=== PATIENT | male | born 1950 | race Caucasian/White ===

== ENCOUNTER 2019-11-01 00:07 | Outpatient (CLI) | payer MEDICARE, SELFPAY ==
[2019-11-01 18:56] LABS: SARS-CoV-2 RNA PCR Negative
== END 2019-11-01 00:08 | disposition home or self-care (01) ==
LOC: ANHCOVIDDT 00:07
PROVIDERS: PCP Internal Medicine; Visit Provider Internal Medicine Gastroenterology
DX: Z01.818 Encounter for other preprocedural examination (principal); Z11.59 Encounter for screening for other viral diseases; Z12.11 Encounter for screening for malignant neoplasm of colon
CPT/HCPCS: 87635; C9803; U0003

== ENCOUNTER 2019-11-03 00:34 | Day surgery (SDC) | payer MEDICARE, SELFPAY ==
[2019-09-28 09:46] VITALS: BMI 27.5
[2019-10-27 14:53] VITALS: BMI 27.5
[2019-11-03] MEDS: LACTATED RINGERS 1,000 ML 150 ML IV CONT (07:12)
[2019-11-03 07:19] VITALS: BP 128/70; PULSE 64; RESP 18; TEMP 36.9; O2SAT 98
--- NOTE | 2019-11-03 07:34 | WPDANESEPPF ---
Anes - Initial Pre Proc Eval Procedure: Operation Date: 11/03/19 08:30 Proposed Procedures p Screening Colonoscopy - Joseluis Holcomb DO Date/Time: 11/03/19 07:34 Surgeon: Joseluis Holcomb DO Pre Op Diagnosis: Diverticulitis Patient Data Age: 68 Gender: M Height: 1.83 m Weight: 84.4 kg Last Vital Signs Temp 36.9 C 11/03/19 07:19 Pulse 64 11/03/19 07:19 Resp 18 11/03/19 07:19 BP 128/70 11/03/19 07:19 Pulse Ox 98 11/03/19 07:19 Allergies Allergy/AdvReac Type Severity Reaction Status Date / Time No Known Allergies Allergy Verified 11/03/19 07:21 Home Medications Medication Instructions Recorded Confirmed Type atenolol 50 mg PO DAILY 09/28/19 10/27/19 History atorvastatin 10 mg PO DAILY 09/28/19 10/27/19 History lisinopril 10 mg PO DAILY 09/28/19 10/27/19 History rivaroxaban [Xarelto] 20 mg PO HS 09/28/19 11/03/19 History Patient hx anesthesia problems: none Family hx anesthesia problems: none PMFSH Past Medical History Medical History (Updated 11/03/19 @ 07:36 by Mahesh Cochran MD) Atrial fibrillation Diverticulitis Head injury head injury at age 21 with left eye enucletion Hx of myocardial infarction 2006 Surgical History Surgical History (Updated 11/03/19 @ 07:35 by Mahesh Cochran MD) Hx of cardiac catheterization x1 stent 2006 Family History Family History (Updated 01/05/14 @ 07:13 by DOCTOR UNKNOWN) Father Malignant neoplasm of prostate Mother Cerebrovascular accident Social History Social History Smoking end date: 05/11/98 Alcohol intake: current Anes - Eval Final PreProcedure Day of Procedure 11/03/19 07:34 Patient weight: overweight Heart: regular rate and rhythm Lungs: clear to auscultation and normal air movement Airway: Mallampati scale class II Neurological: alert and oriented Last oral intake: >/= 8 hours ASA classification: III Emergent: no Anesthetic plan: proceed Anesthesia type and monitoring: general GIVS Informed Consent: The patient's anesthetic plan and its attendant risks and benefits were discussed with the patient/family/POA. Questions were solicited and answers provided to the satisfaction of the patient/family/POA.
--- NOTE | 2019-11-03 08:04 | PM.IMHP ---
H&P: HPI History of Present Illness Chief complaint: Diverticulitis Narrative: Reason for visit colonoscopy. Very pleasant gentleman's here at the request of the primary physician. The patient was examined. Impression: Your ever pleasant gentleman with a history adenomatous colon polyps and diverticulitis. He is here for colonoscopy for screening and surveillance. Per past medical history. Recommendation: Colonoscopy. History: Very pleasant gentleman is a history of adenomatous colon polyps and diverticulitis. Recently he self treated for diverticulitis with antibiotics. he denies any hematochezia, melena or acholic stools. Constipation and diarrhea deny. Upper gastrointestinal symptoms are denied. Physical examination: General: very pleasant patient in no acute distress. HEENT: Head was normocephalic sclerae is clear mouth without masses neck was supple. Heart: Irregularly irregular Lungs: CTA. Abdomen: Soft with no guarding or rigidity. Bowel sounds were active. Neurologic: Cranial nerves 2 through 12 intact. No focal defects. No clonus. Musculoskeletal system: Revealed no joint tenderness or swelling no muscle atrophy. Extremities: Reveal no significant edema. Skin: Warm and dry with normal turgor. Mental status: intact. Patient is alert and oriented. Review of Systems Review of Systems: All systems reviewed & are unremarkable except as noted in HPI and below PMFSH Past Medical History Medical History Adenomatous colon polyp Atrial fibrillation CAD (coronary artery disease) Diverticulitis Head injury head injury at age 21 with left eye enucletion HLD (hyperlipidemia) HTN (hypertension) Hx of myocardial infarction 2006 Surgical History Surgical History H/O colonoscopy History of ankle surgery Hx of cardiac catheterization x1 stent 2006 Family History Family History Father Malignant neoplasm of prostate Mother Cerebrovascular accident Social History Social History Smoking end date: 05/11/98 Alcohol intake: current Meds Home Medications and Allergies Home Medications Medication Instructions Recorded Confirmed Type atenolol 50 mg PO DAILY 09/28/19 10/27/19 History atorvastatin 10 mg PO DAILY 09/28/19 10/27/19 History lisinopril 10 mg PO DAILY 09/28/19 10/27/19 History rivaroxaban [Xarelto] 20 mg PO HS 09/28/19 11/03/19 History Allergies Allergy/AdvReac Type Severity Reaction Status Date / Time No Known Allergies Allergy Verified 11/03/19 07:21 Vital Signs Vital Signs - 24 hr 11/03/19 07:19 Temperature 36.9 C Pulse Rate 64 Respiratory Rate 18 Blood Pressure 128/70 Pulse Oximetry 98
[2019-11-03 08:35] VITALS: BP 88/55; PULSE 69; RESP 17; O2SAT 97
[2019-11-03 08:45] VITALS: BP 106/82; PULSE 72; RESP 17; O2SAT 98
[2019-11-03 08:55] VITALS: BP 100/60; PULSE 67; RESP 16; O2SAT 96
== END 2019-11-03 08:57 | disposition home or self-care (01) ==
PROVIDERS: Visit Provider Internal Medicine Gastroenterology
PROC: 0DJD8ZZ Inspection of Lower Intestinal Tract, Via Natural or Artificial Opening Endoscopic (ICD-10-PCS; CPT 45378; principal; 2019-11-03 08:30)
DX: Z12.11 Encounter for screening for malignant neoplasm of colon (principal); D12.2 Benign neoplasm of ascending colon; D12.3 Benign neoplasm of transverse colon; K57.30 Diverticulosis of large intestine without perforation or abscess without bleeding; K64.8 Other hemorrhoids; I10 Essential (primary) hypertension; I48.91 Unspecified atrial fibrillation; I25.10 Atherosclerotic heart disease of native coronary artery without angina pectoris; E78.5 Hyperlipidemia, unspecified; I25.2 Old myocardial infarction
CPT/HCPCS: 45385; 45380; 87635; 88305; C9803; J2001; J2704; J7120; U0003

== ENCOUNTER 2020-06-15 10:18 | Outpatient (CLI) | payer MEDICARE, SELFPAY ==
[2020-06-15 13:16] LABS: Alanine Aminotransferase 30 U/L (4-50); Albumin Level 4.3 g/dL (3.5-5.1); Alkaline Phosphatase 135 U/L (38-126); Anion Gap 9 mmol/L (8-16); Aspartate Amino Transferase 35 U/L (17-59); Bilirubin,Total 2.3 mg/dL (0.2-1.3); Blood Urea Nitrogen 13 mg/dL (9-20); Calcium 9.3 mg/dL (8.4-10.2); Carbon Dioxide 24 mmol/L (22-30); Chloride 107 mmol/L (98-107); Cholesterol 130 mg/dL (0-200); Estimated Glomerular Filt Rate > 60; Glucose 103 mg/dL (75-110); HDL Direct 56 mg/dL; Potassium 4.3 mmol/L (3.4-5.0); Sodium 140 mmol/L (137-145); Triglycerides 65 mg/dL (<150)
[2020-06-15 13:27] LABS: LDL Cholesterol Direct 55 mg/dL
[2020-06-15 13:47] LABS: Prostate Specific Antigen 1.3 ng/mL (< OR = 4.0)
== END 2020-06-15 10:19 | disposition home or self-care (01) ==
PROVIDERS: PCP Nurse Practitioner; Visit Provider Nurse Practitioner
DX: E78.5 Hyperlipidemia, unspecified (principal); Z12.5 Encounter for screening for malignant neoplasm of prostate
CPT/HCPCS: 36415; 80053; 80061; 84153; G0103

== ENCOUNTER 2021-07-12 13:42 | Outpatient (CLI) | payer MEDICARE, SELFPAY ==
[2021-07-12 16:36] LABS: Alanine Aminotransferase 33 U/L (4-50); Albumin Level 4.2 g/dL (3.5-5.1); Alkaline Phosphatase 97 U/L (38-126); Anion Gap 8 mmol/L (8-16); Aspartate Amino Transferase 34 U/L (17-59); Bilirubin,Total 1.1 mg/dL (0.2-1.3); Blood Urea Nitrogen 12 mg/dL (9-20); Calcium 8.9 mg/dL (8.4-10.2); Carbon Dioxide 27 mmol/L (22-30); Chloride 105 mmol/L (98-107); Cholesterol 130 mg/dL (0-200); Estimated Glomerular Filt Rate > 60; Glucose 77 mg/dL (65-110); HDL Direct 57 mg/dL; Potassium 3.7 mmol/L (3.4-5.0); Sodium 140 mmol/L (137-145); Triglycerides 72 mg/dL (<150)
[2021-07-12 16:49] LABS: LDL Cholesterol Direct 58 mg/dL
[2021-07-12 17:07] LABS: Prostate Specific Antigen 1.3 ng/mL (< OR = 4.0)
[2021-07-16 09:48] LABS: Testosterone Total 355 ng/dL (250-1100)
== END 2021-07-12 13:43 | disposition home or self-care (01) ==
PROVIDERS: PCP Nurse Practitioner; Visit Provider Nurse Practitioner
DX: Z12.5 Encounter for screening for malignant neoplasm of prostate (principal); E78.5 Hyperlipidemia, unspecified; R53.83 Other fatigue
CPT/HCPCS: 36415; 80053; 80061; 84153; 84403; G0103

== ENCOUNTER 2022-10-07 11:03 | Emergency (ER) | payer MEDICARE, SELFPAY ==
--- NOTE | ~2022-10-07 | XR_ITS ---
EXAMINATION: XR lumbar spine 2-3V DATE: 10/07/2022 11:45 INDICATION: Back pain. TECHNIQUE: 3 views of lumbar spine were obtained. COMPARISON: CT abdomen and pelvis 11/10/2016 FINDINGS: There is 12 degrees levoscoliosis of lumbar spine. There is 3 mm retrolisthesis of L4 on L5 . There is a compression fracture of L1 with 1/5 loss of height. There is a compression fracture of L 4 with 1/5 loss of height. There is mildly decreased disc height at L2-L3 and L3-L4 and severely decr eased disc height at L4-L5 and L5-S1. There is multilevel facet joint osteoarthritis, severe in lower lumbar spine. IMPRESSION: 1. Age-indeterminate compression fractures of L1 and L4, new from 11/10/2016. 2. Severe lumbar spondylosis. 3. Lumbar levoscoliosis. Reviewed, dictated and finalized at location L.
[2022-10-07 11:19] VITALS: BP 170/102; PULSE 78; RESP 18; TEMP 36.6; O2SAT 100
[2022-10-07] MEDS: CYCLOBENZAPRINE HCL 10 MG TABLET PO (12:52)
[2022-10-07] MEDS: HYDROcodone/acetaminophen (*CRX) 5-325 MG TABLET 1 TAB PO (12:52)
--- NOTE | 2022-10-07 12:54 | ED.BACK ---
HPI - Back Pain/Injury General Chief Complaint: Back Pain/Injury Stated Complaint: LOW BACK PAIN S/P FALL 5 DAYS AGO Time Seen by Provider: 10/07/22 11:55 History of Present Illness HPI Narrative: 71-year-old male presenting to the ED for evaluation of right lower back pain. Patient reports that he did have a fall on Thursday while he was on his porch and trying to move a box. Patient reports he did have a mechanical fall from losing traction and falling backwards. Patient states he did land on the grass on his lower back. Patient describes right lower back pain. Patient denies striking his head denies loss of consciousness. Patient denies any associated numbness or weakness. Patient denies any change in bowel or bladder habits. Patient was being treated at home by his with ibuprofen, steroids and Valium. Patient presents to the ED for evaluation. Related Data Home Medications Medication Instructions Recorded Confirmed atenolol 50 mg tablet 50 mg PO DAILY 09/28/19 06/28/21 lisinopril 10 mg tablet 10 mg PO DAILY 09/28/19 06/28/21 rivaroxaban 20 mg tablet (Xarelto) 20 mg PO HS 09/28/19 06/28/21 atorvastatin 40 mg tablet 40 mg PO DAILY 06/12/20 06/28/21 Allergies Allergy/AdvReac Type Severity Reaction Status Date / Time No Known Allergies Allergy Verified 10/07/22 11:23 Review of Systems Review of Systems: All systems reviewed & are unremarkable except as noted in HPI and below PMFSH Past Medical History Medical History Adenomatous colon polyp Atrial fibrillation CAD (coronary artery disease) Diverticulitis Head injury head injury at age 21 with left eye enucletion HLD (hyperlipidemia) HTN (hypertension) Hx of myocardial infarction 2006 Surgical History Surgical History H/O colonoscopy History of ankle surgery Hx of cardiac catheterization x1 stent 2006 Family History Family History Father Malignant neoplasm of prostate Heart disease Cerebrovascular accident Mother Cerebrovascular accident Cancer Social History Social History Smoking end date: 05/11/98 Alcohol intake: current Alcohol use details: social Substance use: never Agree to blood products: Yes Exam Narrative: APPEARANCE: Well appearing, no pain, no distress, well-nourished. HEAD: normocephalic, atraumatic. EYES: PERRLA/EOMI, conjunctivae clear. NOSE: Normal no drainage NECK: Supple. No adenopathy, no masses. No midline neck tenderness to palpation RESPIRATORY: Airway patent, respirations nonlabored. Clear to auscultation bilaterally, no rales, rhonchi, wheezing. CARDIOVASCULAR: Regular rate and rhythm without murmurs rubs or gallops. ABDOMINAL: Soft, nontender, nondistended, normal bowel sounds MUSCULOSKELETAL: Moves all extremities. Strength/ROM intact, No edema, No calf tenderness. No midline tenderness to palpation of the entire neck or spine. No tenderness step-offs or deformity. Patient did have some reproducible tenderness on the right paraspinal muscles. NEURO: Alert. Cranial nerves II through XII intact. Normal reflexes and strength SKIN: Warm, dry. Normal Color Course Course Emergency Course: 71-year-old male presented to ED for evaluation of lower back pain. Patient's pain is noted on the midline. Patient's x-ray does show age-indeterminate compression fractures of L1 and L4 these are new since 2017. These do not correlate with the patient's pain. Patient and family were updated on the x-rays and plan for treatment. All questions and concerns were addressed. They will be provided outpatient follow-up with neurosurgery due to the age-indeterminate compression fractures. Vital Signs Vital signs: Vital Signs Temperature 97.8 F 10/07/22 11:19 Pulse Rate 78
== END 2022-10-07 13:15 | disposition home or self-care (01) ==
PROVIDERS: Emergency Provider Emergency Medicine; PCP Nurse Practitioner
DX: S39.92XA Unspecified injury of lower back, initial encounter (principal); I48.91 Unspecified atrial fibrillation; I25.10 Atherosclerotic heart disease of native coronary artery without angina pectoris; E78.5 Hyperlipidemia, unspecified; I10 Essential (primary) hypertension; I25.2 Old myocardial infarction; Z86.010 Personal history of colon polyps; Z87.891 Personal history of nicotine dependence; Z79.01 Long term (current) use of anticoagulants; M47.816 Spondylosis without myelopathy or radiculopathy, lumbar region; M48.56XA Collapsed vertebra, not elsewhere classified, lumbar region, initial encounter for fracture; W18.39XA Other fall on same level, initial encounter
CPT/HCPCS: 72100; 99283; A9270

== ENCOUNTER 2022-12-29 14:21 | Outpatient (CLI) | payer MEDICARE, SELFPAY ==
[2022-12-29 16:31] LABS: Hematocrit 43.9 % (42.0-52.0); Hemoglobin 14.4 g/dL (14.0-18.0); Mean Corpuscular HGB Conc 32.8 g/dl (32-36); Mean Corpuscular Volume 100.5 fl (80-100); Mean Platelet Volume 11.1 fl (7.4-10.4); Platelet Count Result 238 k/mm3 (150-375); Red Blood Count 4.37 M/mm3 (4.6-6.20); Red Cell Distribution Width 14.1 % (11.5-14.5); White Blood Count 8.6 K/mm3 (4.5-10.0)
[2022-12-29 16:50] LABS: Alanine Aminotransferase 28 U/L (6-50); Albumin Level 4.3 g/dL (3.5-5.1); Alkaline Phosphatase 112 U/L (38-126); Anion Gap 9 mmol/L (8-16); Aspartate Amino Transferase 33 U/L (17-59); Bilirubin,Total 1.8 mg/dL (0.2-1.3); Blood Urea Nitrogen 11 mg/dL (9-20); Carbon Dioxide 24 mmol/L (22-30); Chloride 103 mmol/L (98-107); Cholesterol 139 mg/dL (0-200); Estimated Glomerular Filt Rate > 60; Glucose 83 mg/dL (65-110); HDL Direct 66 mg/dL; Potassium 3.8 mmol/L (3.4-5.0); Sodium 136 mmol/L (137-145); Triglycerides 58 mg/dL (<150)
[2022-12-29 17:01] LABS: LDL Cholesterol Direct 60 mg/dL
[2022-12-29 17:21] LABS: Prostate Specific Antigen 1.8 ng/mL (< OR = 4.0)
== END 2022-12-29 14:22 | disposition home or self-care (01) ==
LOC: ANHLAB 14:23
PROVIDERS: PCP Nurse Practitioner; Visit Provider Nurse Practitioner
DX: E78.5 Hyperlipidemia, unspecified (principal); Z12.5 Encounter for screening for malignant neoplasm of prostate; Z79.899 Other long term (current) drug therapy
CPT/HCPCS: 36415; 80053; 80061; 84153; 85027; G0103

== ENCOUNTER 2023-09-21 11:27 | Outpatient (CLI) | payer MEDICARE, SELFPAY ==
--- NOTE | ~2023-09-21 | XR_ITS ---
Clinical Indication: Cough PA and lateral views of the chest: Comparison: 05/22/2009 Findings: The lungs are clear, without evidence of focal consolidation or pleural effusion. Cardiome diastinal silhouette is within normal limits. Bones and soft tissues are unremarkable. Impression: Normal chest. Reviewed, dictated and finalized at location . Impression: Normal chest.
[2023-09-21 12:14] LABS: Anion Gap 6 mmol/L (4-12); Blood Urea Nitrogen 13 mg/dL (9-20); Calcium 9.5 mg/dL (8.4-10.2); Carbon Dioxide 29 mmol/L (22-30); Chloride 103 mmol/L (98-107); Estimated Glomerular Filt Rate > 60; Glucose 101 mg/dL (65-110); Potassium 4.4 mmol/L (3.4-5.0); Sodium 138 mmol/L (137-145)
== END 2023-09-21 11:28 | disposition home or self-care (01) ==
LOC: ANHLAB 11:30
PROVIDERS: PCP Nurse Practitioner; Visit Provider Nurse Practitioner Adult Health
DX: R05.3 Chronic cough (principal); I51.89 Other ill-defined heart diseases
CPT/HCPCS: 36415; 71046; 80048

== ENCOUNTER 2024-11-18 10:02 | Outpatient (CLI) | payer MEDICARE, SELFPAY ==
--- OUTSIDE RECORDS SUMMARY | 2024-11-18 10:07 | XMS_ITS | Encounter Summary ---
Author Organization [facility] Address [address] [facility] [facility] [facility] [place] [address] Care Team Providers Care Feather Sawyer Name Role Phone Mike Alex MD Primary Care Provider Yelena Nguyen MD Unavailable Emani Robledo Unavailable Yessy Shah MD Unavailable Encounter Details Date Type Department Care Team (Late st Contact Info) Description 07/16/2023 Lab Requisition [facility] - DermPath Lab [address] [facility] [facility] [place] [address] Nan Solis MD [address] [facility] [address] [place] [address] Social History Tobacco Use Types Packs/Day Years Used Date Smoking Tobacco: Former Smokeless Tobacco: Former Quit: 05/11/1998 Comments:until 1998 Alcohol Use Standard Drinks/Week Comments Yes 0 (1 standard drink = 0.6 oz pur e alcohol) occasional Sex and Gender Information Value Date Recorded Sex Assigned at Not on file Legal Sex Male 5:33 PM SHEET ROCK TAPER HELPER Gender Identity Not on file Sexual Orientation Not on file documented as of this encounter Plan of Treatment Not on file documented as of this encounter Procedures Procedure Name Priority Date/Time Associated Diagnosis Comments DERMATOPATHOLOGY Routine 07/16/2023 1:18 PM SHEET ROCK TAPER HELPER documented in this encounter Results * DERMATOPATHOLOGY (07/16/2023 1:18 PM SHEET ROCK TAPER HELPER) Case Report Dermatopathology Report Case: [id number] Authorizing Provider: Nan Solis MD Collected: 07/16/2023 01:18 PM Ordering Location: [facility] - Received: 07/17/2023 01:12 PM DermPath Lab Pathologist: Ilana Donnelly MD Specimens: A) - Skin, left lower lip B) - Skin, right nose 1:19 PM CDT DERMATOPATHOLOGY LABORATORY Final Diagnosis Specimen A. SKIN, left lower lip: BASAL CELL CARCINOMA, NODULAR TYPE (C44.01) Specimen B. SKIN, right nose: BASAL CELL CARCINOMA, NODULAR TYPE (C44.311) (see microscopic description) 1:19 PM CDT DERMATOPATHOLOGY LABORATORY at 1319 CDT Clinical History A-B: r/o BCC 1:19 PM CDT DERMATOPATHOLOGY LABORATORY Gross Description Specimen A: Received is one formalin filled container labeled with the patient's name and designated left lower lip. The specimen consists of a shave biopsy measuring 10x5x2 mm. Jar 0. Specimen B: Received is one formalin filled container labeled with the patient's name and designated right nose. The specimen consists of a shave biopsy measuring 5x4x1 mm. Jar 0. 1:19 PM CDT DERMATOPATHOLOGY LABORATORY Microscopic Description Specimen A. SKIN, left lower lip: Within the dermis there are aggregates of basaloid cells with a high nuclear to cytoplasmic ratio and peripheral palisading. Specimen B. SKIN, right nose: Within the dermis there are aggregates of basaloid cells with a high nuclear to cytoplasmic ratio and peripheral palisading. Additional deeper sections were obtained and reviewed. 1:19 PM CDT DERMATOPATHOLOGY LABORATORY Disclaimer An external and internal positive and negative controls are appropriate for the histochemical, immunohistochemical and immunofluorescence stain(s) in this case (if any), except where stated explicitly. The performance characteristics of the stain(s) cited in this report were developed and its performance characteristic determined by the Dermatopathology Laboratory at [facility], directed by Dr. Angela Rae. These tests need not be, and therefore are not, approved by the [place] Food and Drug Administration. The tests are used for clinical purposes. Billing Codes Specimen Charges Stain Charges 88379 07475 1 1 4 1:19 PM CDT DERMATOPATHOLOGY LABORATORY Embedded Images 1:19 PM CDT DERMATOPATHOLOGY LABORATORY Pathology/Cytology TISSUE SPECIMEN FROM SKIN / Unknown 07/16/2023 1:18 PM SHEET ROCK TAPER HELPER 07/17/2023 1:12 PM SHEET ROCK TAPER HELPER Miscellaneous samples (specimen) TISSUE SPECIMEN FROM SKIN / Unknown 07/16/2023 1:18 PM SHEET ROCK TAPER HELPER 07/17/2023 1:12 PM SHEET ROCK TAPER HELPER us Nan Solis MD LAB - PATHOLOGY/CYTOLOGY ORD ERABLES Final Result DERMATOPATHOLOGY LABORATORY [facility] - Department of Dermatology [facility] [address] [facility] 3rd Floor [place], [place] [id number] [place] [address] documented in this encounter Visit Diagnoses Not on filedocumented in this encounter Care Teams Feather Sawyer Relationship Specialty Start Date End Date Mike Alex MD [address] [facility] [address] [facility] [address] [place] [address] PCP - General 11/19/20 [place] [address] [place] [address] [place] [id number] Ophthalmology 02/07/21 Emani Robledo [address] [place] [address] 02/11/21 Yessy Shah MD [address] [facility] [address] [place] [address] Physician Cardiovascular Disease 05/21/21 documented as of this encounter
--- OUTSIDE RECORDS SUMMARY | 2024-11-18 10:07 | XMS_ITS | Encounter Summary ---
Author Organization [facility] Address [address] [facility] [place] [address] Care Team Providers Care Cupola Mechanic Name Role Phone Mike Alex MD Primary Care Provider [phone] Yelena Nguyen MD Unavailable Emani Robledo Unavailable Yessy Shah MD Unavailable [phone] Encounter Details Date Type Department Care Team (Late st Contact Info) Description 01/26/2024 Lab Requisition [facility] - DermPath Lab [address] [facility], [facility] [place] [address] Nan Solis MD [address] [facility] [address] [place] [address] Social History Tobacco Use Types Packs/Day Years Used Date Smoking Tobacco: Former Smokeless Tobacco: Former Quit: 05/11/1998 Comments:until 1998 Alcohol Use Standard Drinks/Week Comments Yes 0 (1 standard drink = 0.6 oz pur e alcohol) occasional Sex and Gender Information Value Date Recorded Sex Assigned at Not on file Legal Sex Male 5:33 PM INSURANCE SPECIAL AGENT Gender Identity Not on file Sexual Orientation Not on file documented as of this encounter Plan of Treatment Not on file documented as of this encounter Procedures Procedure Name Priority Date/Time Associated Diagnosis Comments DERMATOPATHOLOGY Routine 01/26/2024 10:0 1 AM CDT documented in this encounter Results * DERMATOPATHOLOGY (01/26/2024 10:01 AM CDT) Case Report Dermatopathology Report Case: [id number] Authorizing Provider: Nan Solis MD Collected: 01/26/2024 10:01 AM Ordering Location: [facility] - Received: 01/26/2024 03:24 PM DermPath Lab Pathologist: Tavia Rae MD Specimens: A) - Skin, right forearm B) - Skin, right neck 2:14 PM CDT DERMATOPATHOLOGY LABORATORY Final Diagnosis Specimen A. 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 The specimen consists of a shave biopsy measuring 9x7x1 mm. Jar 0. Specimen B: Received is one formalin filled container labeled with the patient's name and designated right neck. The specimen consists of a shave biopsy measuring 9x7x2 mm. Jar 0. 2:14 PM CDT DERMATOPATHOLOGY LABORATORY Microscopic Description Specimen A. SKIN, right forearm: The epidermis shows parakeratosis, full thickness disorderly maturation of keratinocytes, mitoses at different levels, and dyskeratotic cells. Specimen B. SKIN, right neck: The epidermis shows parakeratosis, full thickness disorderly maturation of keratinocytes, mitoses at different levels, and dyskeratotic cells. There is a column of marked compact hyperkeratosis. 2:14 PM CDT DERMATOPATHOLOGY LABORATORY Disclaimer An external and internal positive and negative controls are appropriate for the histochemical, immunohistochemical and immunofluorescence stain(s) in this case (if any), except where stated explicitly. The performance characteristics of the stain(s) cited in this report were developed and its performance characteristic determined by the Dermatopathology Laboratory at [facility], directed by Dr. Angela Rae. These tests need not be, and therefore are not, approved by the [place] Food and Drug Administration. The tests are used for clinical purposes. Billing Codes Specimen Charges Stain Charges 28059 [id number] 1 1 4 2:14 PM CDT DERMATOPATHOLOGY LABORATORY Embedded Images 4 2:14 PM CDT DERMATOPATHOLOGY LABORATORY Pathology/Cytology TISSUE SPECIMEN FROM SKIN / Unknown 01/26/2024 10:01 AM CDT 01/26/2024 3:24 PM CDT Miscellaneous samples (specimen) TISSUE SPECIMEN FROM SKIN / Unknown 01/26/2024 10:01 AM CDT 01/26/2024 3:24 PM CDT Nan Solis MD LAB - PATHOLOGY/CYTOLOGY ORD ERABLES Final Result DERMATOPATHOLOGY LABORATORY [facility] - Department of Dermatology [facility] Specialized Medicine [address] [facility], 3rd Floor [address] [phone] documented in this encounter Visit Diagnoses Not on filedocumented in this encounter Care Teams Cupola Mechanic Relationship Specialty Start Date End Date Mike Alex MD [address] [facility] [address] [facility] [address] [place] [address] PCP - General 11/19/20 Yelena Nguyen MD [address] [place] [address] DE[place] [address] Ophthalmology 02/07/21 Emani Robledo [address] [place] [address] 02/11/21 Yessy Shah MD [address] [facility] [address] [place] [address] Physician Cardiovascular Disease 05/21/21 documented as of this encounter
--- OUTSIDE RECORDS SUMMARY | 2024-11-18 10:07 | XMS_ITS | Clinical Summary ---
Author Organization [facility] Address [address], [address] [address] Phone Care Team Providers Care Roll Scale Worker Name Role Phone Mike Alex MD Primary Care Provider Allergies No known active allergies Medications lisinopril (PRINIVIL, ZESTRIL) 2.5 MG Tablet Take 2.5 mg by mouth daily. Active atorvastatin (LIPITOR) 10 MG Tablet Take 10 mg by mouth daily. Active atenolol (TENORMIN) 50 MG Tablet Take 50 mg by mouth daily. Active SAVAYSA 60 MG Tablet 2 12/09/2016 Active metroNIDAZOLE (FLAGYL) 500 MG Tablet Take 1 Tab by mouth 3 times daily. 30 Tab 02/17/2017 Active Family History Medical History Relation Name Comments Prostate Cancer Father Breast Cancer Mother Relation Name Status Comments Father Mother Social History Tobacco Use Types Packs/Day Years Used Date Smoking Tobacco: Former Cigarettes 2 32 Smokeless Tobacco: Never Alcohol Use Standard Drinks/Week Comments Yes 12 (1 standard drink = 0.6 oz pu re alcohol) Sex and Gender Information Value Date Recorded Sex Assigned at Not on file Legal Sex Male 7:29 PM CDT Gender Identity Not on file Sexual Orientation Not on file Last Filed Vital Signs Vital Sign Reading Time Taken Comments Blood Pressure 128/84 02/17/2017 9:22 AM CDT Pulse 81 02/17/2017 9:22 AM CDT Temperature 35.7 C (96.3 F) 02/17/2017 9:22 AM CDT Respiratory Rate 20 02/17/2017 9:22 AM CDT Oxygen Saturation 97% 02/17/2017 9:22 AM CDT Inhaled Oxygen Concentration - - Weight 87.5 kg (193 lb) 02/17/2017 9:22 AM CDT Height 182.9 cm (6') 02/17/2017 9:22 AM CDT Body Mass Index 26.18 02/17/2017 9:22 AM CDT Plan of Treatment Health Maintenance Due Date Last Done Comments Hepatitis C Virus (HCV) Screening 1950 TdaP Immunization 1950 Cologuard 11/07/2001 Immunochemical Fecal Occult Blood 11/07/2001 Pneumococcal Immunization (5 0+ years) (1 of 1 - PCV) 11/07/2001 Zoster Immunization (1 of 2) 11/07/2001 Respiratory Syncytial Virus (RSV) Immunization (Adult) (1 - Risk 60-74 years 1-dose series) 2011 Influenza Immunization (#1) 2024 SARS-COV-2 Immunization ( - season) 2024 Colonoscopy 11/02/2024 11/03/2019, 10/30/2016 Colorectal Cancer Screening 11/02/2024 Hepatitis B Immunization Aged Out No longer eligible based on patient's age to complete this topic Meningococcal Immunization (ACWY) Aged Out No longer eligible b ased on patient's age to complete this topic Rotavirus Immunization Aged Out No lo nger eligible based on patient's age to complete this topic Procedures Procedure Name Priority Date/Time Associated Diagnosis Comments COLONOSCOPY Routine 11/03/2019 from Last 3 Months or Most Recently Relevant to Health Maintenance Results * COLONOSCOPY (11/03/2019) Joseluis Holcomb DO PROCEDURE/MINOR SURGICAL ORDERA BLES Final Result from Last 3 Months or Most Recently Relevant to Health Maintenance [facility] Care Teams Roll Scale Worker Relationship Specialty Start Date End Date Mike Alex MD PCP - General Internal Medicine 11/01/16
--- OUTSIDE RECORDS SUMMARY | 2024-11-18 10:07 | XMS_ITS | Clinical Summary ---
Author Organization [facility] Address [address] [place] [address] Care Team Providers Care Physical Plant Employee Name Role Phone Mike Alex MD Primary Care Provider [phone] Yelena Nguyen MD Unavailable [phone] Emani Robledo Unavailable Yessy Shah MD Unavailable [phone] Source Comments [facility],non-owned Affiliates and Associated Physician Practices is amultiple site organization consisting of ambulatory clinics and hospital sitesin [place], [place], [place] and [place]. This disclosure is being madepursuant to the Care Everywhere program and may not contain all information available regarding this patient. Last updated 18.[facility] Allergies No known active allergies Medications * Be aware that medications may not be up to date on this document. Alwaysverify current medications with the patient. rivaroxaban (XARELTO) 20 MG tablet Take 20 mg by mouth once daily 12/28/2019 Active atenolol (TENORMIN) 50 MG tablet Take 25 mg by mouth once daily Active atorvastatin (LIPITOR) 40 MG tablet Take 40 mg by mouth once daily 12/28/2019 Active lisinopril (PRINIVIL; ZESTRIL) 10 MG tablet Take 10 mg by mouth once daily 12/28/2019 Active neomycin-polymy meryl-dexameth (MAXITROL) ophthalmic ointment Instill into left eye 2 times daily 3.5 g 3 07/05/2021 Active Active Problems Problem Noted Date Diagnosed Date SNHL (sensory-neural hearing loss), asymmetrical 02/28/2021 Preoperative cardiovascular examination 01/09/20 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 (FLUZONE HIGH-DOSE QUADRIVALENT; 65Y+), 0.7 ML (HD-IIV4) 03/19/2021,02/28/2020 TDAP (7yrs+) 10/19/2018 Zoster Hzv Vacc Recombinant Inj Im 01/27/2019, Family History Medical History Relation Name Comments Macular Degeneration Father Amblyopia Neg Hx Blindness Neg Hx Cataract Neg Hx Glaucoma Neg Hx Retinal Detachment Neg Hx Strabismus Neg Hx Relation Name Status Comments Father Social History Tobacco Use Types Packs/Day Years Used Date Smoking Tobacco: Former Smokeless Tobacco: Former Quit: 05/11/1998 Comments:until 1998 Alcohol Use Standard Drinks/Week Comments Yes 0 (1 standard drink = 0.6 oz pur e alcohol) occasional Sex and Gender Information Value Date Recorded Sex Assigned at Not on file Legal 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 Gender Identity Not on file Sexual Orientation Not on file Last Filed Vital Signs Vital Sign Reading Time Taken Comments Blood Pressure 126/84 01/11/2021 11:48 AM CDT Pulse 72 01/11/2021 11:48 AM CDT Temperature 36.1 C (97 F) 01/11/2021 11:10 AM CDT Respiratory Rate 16 01/11/2021 11:48 AM CDT Oxygen Saturation 98% 01/11/2021 11:48 AM CDT Inhaled Oxygen Concentration - - Weight 79.4 kg (175 lb) 01/11/2021 6:58 AM CDT Height 182.9 cm (6') 01/11/2021 6:58 AM CDT Body Mass Index 23.73 01/11/2021 6:58 AM CDT Plan of Treatment Health Maintenance Due Date Last Done Comments COLOGUARD (AGES 45-75) - COL ON CA SCREENING 1950 COLON MONITORING 1950 COLONOSCOPY - COLON CA SCREENING 1950 CT COLONOGRAPHY - COLON CA SCREENING 1950 Colorectal Cancer Screening 1950 FIT - COLON CA SCREENING 1950 FLEX SIG - COLON CA SCREENING 1950 HEPATITIS C SCREENING 11/03/1969 PNEUMOCOCCAL VACCINE 50+ (1 of 1 - PCV) 11/07/2001 AAA SCREENING 11/07/2016 COVID-19 VACCINE (4 - 2023-2 5 season) 2024 03/19/2021, 07/17/2020, 06/19/2020 DEPRESSION SCREENING 05/11/2024 MEDICARE AWV CALENDAR YEAR 2024 INFLUENZA VACCINE (Season Ended) 2025 03/19/2021, 02/28/2020 Respiratory Syncytial Virus (RSV) Vaccine Pt: or over 60 yrs (1 - 1-dose 75+ series) 11/07/2026 DTAP/TDAP/TD VACCINES (3 - T d or Tdap) 06/04/2029 06/04/2019, 10/19/2018 ZOSTER VACCINE Completed 01/27/2019, 10/19/2018 HEPATITIS B VACCINE Aged Out No longe r eligible based on patient's age to complete this topic HIB VACCINE Aged Out No longer eligi ble based on patient's age to complete this topic HPV VACCINE Aged Out No longer eligi ble based on patient's age to complete this topic MENINGOCOCCAL (Group B) VACCINE SHARED DECISION-MAKING Aged Out No longer eligible based on patient's age to complete this topic MENINGOCOCCAL GROUPS A/C/Y/W VACCINE Aged Out No longer eligible b ased on patient's age to complete this topic Medical Devices Implanted Type Area Ornithology Teacher Device Identifier Shelf Expiration Date Model / Serial / Lot Cnfrmr Opth Sm [place] Pmma N=Dev Strl Lf Implanted:Qty: 1 on 01/11/2021 by Yelena Nguyen MD at [facility] Left: Eye [employer] 09/11/2021 [id number] / / [id number] Procedures Procedure Name Priority Date/Time Associated Diagnosis Comments DERMATOPATHOLOGY Routine 10/04/2024 12:5 4 PM CDT from Last 3 Months Results * DERMATOPATHOLOGY (10/04/2024 12:54 PM CDT) Case Report Dermatopathology Report Case: [id number] Authorizing Provider: Nan Solis MD Collected: 10/04/2024 12:54 PM Ordering Location: [facility] - Received: 10/05/2024 10:44 AM DermPath Lab Pathologist: Ilana Donnelly MD Specimen: Skin, left wrist 1:51 PM CDT DERMATOPATHOLOGY LABORATORY Final Diagnosis Specimen A. 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 The specimen consists of a shave biopsy measuring 7x7x2 mm. Jar 0. 1:51 PM CDT DERMATOPATHOLOGY LABORATORY Microscopic Description Specimen A. SKIN, left wrist: The epidermis shows parakeratosis, full thickness disorderly maturation of keratinocytes, mitoses at different levels, and dyskeratotic cells. 1:51 PM CDT DERMATOPATHOLOGY LABORATORY Disclaimer An external and internal positive and negative controls are appropriate for the histochemical, immunohistochemical and immunofluorescence stain(s) in this case (if any), except where stated explicitly. The performance characteristics of the stain(s) cited in this report were developed and its performance characteristic determined by the Dermatopathology Laboratory at [facility], directed by Dr. Angela Rae. These tests need not be, and therefore are not, approved by the [place] Food and Drug Administration. The tests are used for clinical purposes. Billing Codes Specimen Charges Stain Charges 34144 1 5 1:51 PM CDT DERMATOPATHOLOGY LABORATORY Embedded Images 5 1:51 PM CDT DERMATOPATHOLOGY LABORATORY Pathology/Cytolo gy TISSUE SPECIMEN FROM SKIN / Unknown 10/04/2024 12:54 PM CDT 10/05/2024 10:44 AM CDT Nan Solis MD LAB - PATHOLOGY/CYTOLOGY ORD ERABLES Final Result DERMATOPATHOLOGY LABORATORY [facility] - Department of Dermatology [facility] Medicine [address], [address] [phone] from Last 3 Months Insurance [facility] MEDICARE ADV Care Teams Physical Plant Employee Relationship Specialty Start Date End Date Mike Alex MD [address] [facility] [address] [place] [address] PCP - General 11/19/20 Yelena Nguyen MD [address] [place] [address] Ophthalmology 02/07/21 Emani Robledo [address] [place] [address] 02/11/21 Yessy Shah MD [address] [place] [address] Physician Cardiovascular Disease 05/21/21
--- OUTSIDE RECORDS SUMMARY | 2024-11-18 10:07 | XMS_ITS | Encounter Summary ---
Author Organization [facility] Address [address] [place] [address] Care Team Providers Care Wireline Field Operator Name Role Phone Mike Alex MD Primary Care Provider [phone] Yelena Nguyen MD Unavailable Emani Robledo Unavailable Yessy Shah MD Unavailable [phone] Encounter Details Date Type Department Care Team (Late st Contact Info) Description 10/04/2024 Lab Requisition [facility] - DermPath Lab [address] [facility], [facility] [place] [address] Nan Solis MD [address] [facility] [address] [place] [address] Social History Tobacco Use Types Packs/Day Years Used Date Smoking Tobacco: Former Smokeless Tobacco: Former Quit: 05/11/1998 Comments:until 1998 Alcohol Use Standard Drinks/Week Comments Yes 0 (1 standard drink = 0.6 oz pur e alcohol) occasional Sex and Gender Information Value Date Recorded Sex Assigned at Not on file 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 Gender Identity Not on file Sexual Orientation Not on file documented as of this encounter Plan of Treatment Not on file documented as of this encounter Procedures Procedure Name Priority Date/Time Associated Diagnosis Comments DERMATOPATHOLOGY Routine 10/04/2024 12:5 4 PM CDT documented in this encounter Results * DERMATOPATHOLOGY (10/04/2024 12:54 PM CDT) Case Report Dermatopathology Report Case: [id number] Authorizing Provider: Nan Solis MD Collected: 10/04/2024 12:54 PM Ordering Location: [facility] - Received: 10/05/2024 10:44 AM DermPath Lab Pathologist: Ilana Donnelly MD Specimen: Skin, left wrist 1:51 PM CDT DERMATOPATHOLOGY LABORATORY Final Diagnosis Specimen A. 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 Angela Rae. These tests need not be, and therefore are not, approved by the [place] Food and Drug Administration. The tests are used for clinical purposes. Billing Codes Specimen Charges Stain Charges 15561 1 1:51 PM CDT DERMATOPATHOLOGY LABORATORY Embedded Images 1:51 PM CDT DERMATOPATHOLOGY LABORATORY Pathology/Cytolo gy TISSUE SPECIMEN FROM SKIN / Unknown 10/04/2024 12:54 PM CDT 10/05/2024 10:44 AM CDT Nan Solis MD LAB - PATHOLOGY/CYTOLOGY ORD ERABLES Final Result DERMATOPATHOLOGY LABORATORY [facility] - Department of Dermatology [facility] Medicine [address] [facility] 3rd [place] [address], [facility] [phone] documented in this encounter Visit Diagnoses Not on filedocumented in this encounter Care Teams Wireline Field Operator Relationship Specialty Start Date End Date Mike Alex MD [address] [facility] [address] [facility] [address] [place] [address] PCP - General 11/19/20 Yelena Nguyen MD [address] [place] [address] [place] [address] Ophthalmology 02/07/21 Emani Robledo [address] [facility] [address] [place] [address] 02/11/21 Yessy Shah MD [address] [facility] [address] [place] [address] Physician Cardiovascular Disease 05/21/21 documented as of this encounter
--- OUTSIDE RECORDS SUMMARY | 2024-11-18 10:07 | XMS_ITS | Encounter Summary ---
Author Organization [facility] Address [address] [place] [address] Care Team Providers Care Aerial Survey Technician Name Role Phone Mike Alex MD Unavailable Rafa Banks NP Primary Care Provider [phone] Encounter Details Date Type Department Care Team (Late st Contact Info) Description 11/17/2024 Telephone [facility] Gastroenterology at [address] [place] [address] Claudia Kaur LPN Social History Tobacco Use Types Packs/Day Years Used Date Smoking Tobacco: Former Cigarettes Q uit: 05/11/1998 Alcohol Use Standard Drinks/Week Comments Yes 0 (1 standard drink = 0.6 oz pur e alcohol) Sex and Gender Information Value Date Recorded Sex Assigned at Not on file Legal Sex Male 5:57 AM CORRECTIONAL CASE RECORDS SUPERVISOR Gender Identity Not on file Sexual Orientation Not on file documented as of this encounter Miscellaneous Notes * Telephone Encounter - Claudia Kaur LPN - 11/17/2024 9:41 AM CDT Pt has been scheduled for a colonoscopy with on 05-09-25 at 930am Last colonoscopy: Family history colon cancer (if yes, relationship to pt): no Personal history colon polyps or colon cancer: no Pt on blood thinner (if yes, list medication and reason for taking): yes xarelto Has pt had recent stent placement within the last year: no Pt have pacemaker/defibrillator: no Pt diabetic (if yes, insulin or oral meds): no Pt takes injections for weight loss: no Pt have kidney disease or on dialysis: no Pt on iron: no Hx of Constipation: no Mechanical Heart valve: no Instructed pt to call with any medical changes and/or medications/insurance. documented in this encounter Plan of Treatment Upcoming Encounters Date Type Department Care Team (Late st Contact Info) Description 05/09/2025 9:30 AM CORRECTIONAL CASE RECORDS SUPERVISOR Hospital Encounter [address] [address] Joseluis Holcomb DO [address] [facility] [address] [place] [address] 05/09/2025 9:30 AM CORRECTIONAL CASE RECORDS SUPERVISOR - 05/09/2025 10:00 AM CORRECTIONAL CASE RECORDS SUPERVISOR Surgery [address] [address] Joseluis Holcomb DO [address] [facility] [address] [place] [address] COLONOSCOPY Scheduled Procedures Name Priority Associated Diagnoses Date/Ti me COLONOSCOPY Screening for colon cancer 05/09/2025 9:30 AM CORRECTIONAL CASE RECORDS SUPERVISOR documented as of this encounter Visit Diagnoses Diagnosis Screening for colon cancer- Primary Special screening for malignant neoplasms, colon Screening for colon cancer- Primary Special screening for malignant neoplasms, colon Screening for colon cancer Special screening for malignant neoplasms, colon documented in this encounter Orders Case Request Count Last Ordered Date First Orde red Date CASE REQUEST GI 1 11/17/2024 documented in this encounter Care Teams Aerial Survey Technician Relationship Specialty Start Date End Date Rafa Banks NP [address] [place] [address] PCP - General Nurse Practitioner 12/28/19 Mike Alex MD [address] [place] [address] 06/04/19 documented as of this encounter
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
--- OUTSIDE RECORDS SUMMARY | 2024-11-18 10:08 | XMS_ITS | Referral Summary ---
Author Organization [facility] [address] Address [address] [place] [address] Care Team Providers Care Hospice Clinical Supervisor Name Role Phone Mike Alex MD Unavailable [phone] Rafa Banks NP Primary Care Provider Encounters Date Type Department Care Team Description 11/17/2024 Telephone [facility] Gastroenterology at [address] [place] [address] Claudia Kaur LPN from Last 3 Months Allergies No known active allergies Medications atenoloL (TENORMIN) 50 mg tabletIndications:Co ronary arteriosclerosis in rincon artery,Persistent atrial fibrillation (HCC) Take 1 tablet [...] (LIPITOR) 40 mg tabletIndications:Co ronary arteriosclerosis in rincon artery,Hyperlipidemi a, unspecified hyperlipidemia type Take 1 tablet by mouth once daily 90 tablet 2 5 Active Active Problems Problem Noted Date Diagnosed Date Screening for colon cancer 11/17/2024 Persistent atrial fibrillation 12/28/2019 Chronic anticoagulation 12/15/2018 Hypercholesteremia 04/23/2016 Overview (08/14/2016): Hyperlipidemia, unspecified Non-rheumatic mitral regurgitation 04/23/2016 Overview (08/14/2016): Non-rheumatic mitral regurgitation Essential hypertension 04/23/2016 Overview (08/14/2016): Essential hypertension Coronary arteriosclerosis in rincon artery 01/27 Overview (08/14/2016): Atherosclerosis of rincon coronary artery of rincon heart without angina pectoris Old myocardial infarction 01/28/2016 Overview (08/14/2016): Old [place] (myocardial infarction) Presence of stent in coronary artery 01/28/2016 Overview (08/14/2016): S/P coronary artery stent placement Resolved Problems Problem Noted Date Diagnosed Date Resolved Date Preoperative cardiovascular examination 01/08/2021 03/24/2022 Controlled atrial fibrillation 01/28/2016 12/28/2019 Overview (08/14/2016): Atrial fibrillation, controlled Social History Tobacco Use Types Packs/Day Years Used Date Smoking Tobacco: Former Cigarettes Q uit: 05/11/1998 Tobacco Cessation:Counseling Given: Not Answered Alcohol Use Standard Drinks/Week Comments Yes 0 (1 standard drink = 0.6 oz pur e alcohol) Sex and Gender Information Value Date Recorded Sex Assigned at Not on file Legal Sex Male 5:57 AM JEWELRY STORE MANAGER Gender Identity Not on file Sexual Orientation Not on file Last Filed Vital Signs Vital Sign Reading Time Taken Comments Blood Pressure 112/60 04/27/2024 11:06 AM JEWELRY STORE MANAGER Pulse 68 04/27/2024 11:06 AM JEWELRY STORE MANAGER Temperature 36.3 C (97.3 F) 02/21/2020 9:13 AM CDT Respiratory Rate - - Oxygen Saturation 95% 04/27/2024 11:06 AM JEWELRY STORE MANAGER Inhaled Oxygen Concentration - - Weight 81.6 kg (180 lb) 04/27/2024 11:06 AM JEWELRY STORE MANAGER Height 182.9 cm (6') 04/27/2024 11:06 AM JEWELRY STORE MANAGER Body Mass Index 24.41 04/27/2024 11:06 AM JEWELRY STORE MANAGER Plan of Treatment Upcoming Encounters Date Type Department Care Team (Late st Contact Info) Description 05/09/2025 9:30 AM JEWELRY STORE MANAGER Hospital Encounter [facility] 1 [place] [address] Joseluis Holcomb, DO [address] [facility] [address] [place] [address] 05/09/2025 9:30 AM JEWELRY STORE MANAGER - 05/09/2025 10:00 AM JEWELRY STORE MANAGER Surgery [address] [address] Joseluis Holcomb DO [address] [facility] [address] [place] [address] COLONOSCOPY Scheduled Procedures Name Priority Associated Diagnoses Date/Ti me COLONOSCOPY Screening for colon cancer 05/09/2025 9:30 AM JEWELRY STORE MANAGER Insurance [employer] MEDICARE Care Teams Hospice Clinical Supervisor Relationship Specialty Start Date End Date Rafa Banks NP [address] [place] [address] PCP - General Nurse Practitioner 12/28/19 Mike Alex MD [address] [facility] [address] [facility] [address] [place] [address] 06/04/19
--- OUTSIDE RECORDS SUMMARY | 2024-11-18 10:08 | XMS_ITS | Encounter Summary ---
Author Organization [facility] Address [address] [facility] [place] [address] Care Team Providers Care Veterinarian Helper Name Role Phone Alexis Dawson MD Primary Care Provider [phone] Yessy Shah MD Unavailable [phone] Mike Alex MD Primary Care Provider [phone] Yelena Nguyen MD Unavailable [phone] Emani Robledo Unavailable Yessy Shah MD Unavailable [phone] Encounter Details Date Type Department Care Team (Late st Contact Info) Description 11/17/2018 Lab Requisition [facility] DermPath Lab [address] [facility], [place] [address] Geraldine Jimenez, [address] [facility] 3 [place] [address] Social History Tobacco Use Types Packs/Day Years Used Date Smoking Tobacco: Former Smokeless Tobacco: Former Quit: 05/11/1998 Alcohol Use Standard Drinks/Week Comments Yes 0 (1 standard drink = 0.6 oz pur e alcohol) Sex and Gender Information Value Date Recorded Sex Assigned at Not on file Legal Sex Male 5:33 PM SURVEILLANCE OFFICER Gender Identity Not on file Sexual Orientation Not on file documented as of this encounter Plan of Treatment Not on file documented as of this encounter Procedures Procedure Name Priority Date/Time Associated Diagnosis Comments DERMATOPATH TECHNICAL REPORT Routine 11/16/2018 12:00 AM CDT documented in this encounter Results * DERMATOPATH TECHNICAL REPORT (11/16/2018 12:00 AM CDT) Case Report Dermatopathology Report Case: [id number] Authorizing Provider: Geraldine Jimenez DO Collected: 11/16/2018 12:00 AM Pathologist: Ntaali Rubio MD Received: 11/17/2018 07:40 AM Specimen: Skin, right cheek 12:49 PM CDT DERMATOPATHOLOGY LABORATORY Clinical History R/O SCC, growing. 12:49 PM CDT DERMATOPATHOLOGY LABORATORY Gross Description Specimen A: Received is one formalin filled container labeled with the patient's name and designated right cheek. The specimen consists of a shave measuring [id number], bisected. Jar 0. [facility] performed the technical component only. 12:49 PM CDT DERMATOPATHOLOGY LABORATORY Embedded Images 12:49 PM CDT DERMATOPATHOLOGY LABORATORY DISCLAIMER An external and internal positive and negative controls are appropriate for the histochemical, immunohistochemical and immunofluorescence stain(s) in this case (if any), except where stated explicitly. The performance characteristics of the stain(s) cited in this report were developed and its performance characteristic determined by the Dermatopathology Laboratory at [facility], directed by Dr. Angela Rae. These tests need not be, and therefore are not, approved by the [place] Food and Drug Administration. The tests are used for clinical purposes. 12:49 PM CDT DERMATOPATHOLOGY LABORATORY at 1249 CDT Pathology/Cytolog y TISSUE SPECIMEN FROM SKIN / Unknown 11/16/2018 11/17/2018 7:40 AM CDT Geraldine Jimenez DO LAB - PATHOLOGY/CYTOLOGY ORDERABLES Final Result DERMATOPATHOLOGY LABORATORY [facility] - Department of Dermatology [address] [place] [address], 5th Floor Lab [address] [phone] documented in this encounter Visit Diagnoses Not on filedocumented in this encounter Care Teams Veterinarian Helper Relationship Specialty Start Date End Date Alexis Dawson MD [address] [place] [address] PCP - General Internal Medicine 06/13/20 11/18/20 Mike Alex MD [address] [place] [address] PCP - General 11/19/20 Yessy Shah MD [address] [facility] [address] [place] [address] Physician Cardiovascular Disease 06/13/20 2 Yelena Nguyen MD [address] [facility] DEPT [place] [address] Ophthalmology 02/07/21 Emani Robledo [address] [facility] [address] [place] [address] 02/11/21 Yessy Shah MD [address] [place] [address] Physician Cardiovascular Disease 05/21/21 documented as of this encounter
[2024-11-18 11:05] LABS: Alanine Aminotransferase 26 U/L (6-50); Albumin Level 4.2 g/dL (3.5-5.1); Alkaline Phosphatase 138 U/L (38-126); Anion Gap 7 mmol/L (4-12); Aspartate Amino Transferase 30 U/L (17-59); Bilirubin,Total 1.7 mg/dL (0.2-1.3); Blood Urea Nitrogen 10 mg/dL (9-20); Calcium 9.1 mg/dL (8.4-10.2); Carbon Dioxide 27 mmol/L (22-30); Chloride 105 mmol/L (98-107); Cholesterol 114 mg/dL (0-200); Estimated Glomerular Filt Rate > 60; Glucose 90 mg/dL (65-110); HDL Direct 62 mg/dL; Potassium 4.7 mmol/L (3.4-5.0); Sodium 139 mmol/L (137-145); Total Protein 7.4 g/dL (6.3-8.2); Triglycerides 45 mg/dL (<150)
[2024-11-18 11:19] LABS: Free T4 Free Thyroxine 1.13 ng/dL (0.78-2.19)
[2024-11-18 11:40] LABS: Prostate Specific Antigen 2.4 ng/mL (< OR = 4.0); Thyroid Stimulating Hormone 3.050 uIU/mL (0.465-4.680)
== END 2024-11-18 10:03 | disposition home or self-care (01) ==
PROVIDERS: PCP Nurse Practitioner; Visit Provider Nurse Practitioner
DX: E78.5 Hyperlipidemia, unspecified (principal); R53.83 Other fatigue; Z12.5 Encounter for screening for malignant neoplasm of prostate
CPT/HCPCS: 36415; 80053; 80061; 84153; 84439; 84443; G0103

== ENCOUNTER 2025-03-01 09:05 | Observation (INO) | payer MEDICARE, SELFPAY ==
[2025-03-01] VITALS (14 sets, daily range): BP systolic 100–151; BP diastolic 59–79; PULSE 48–76; RESP 9–18; TEMP 36.5–36.9; O2SAT 91–99; BMI 22.4
--- NOTE | 2025-03-01 | ECHO_ITS ---
Patient Info Name: Rodo Guerin Age: 74 years : 1950 Gender: Male Ht: 72 in Wt: 182 lbs BSA: 2.05 m2 HR: 48 bpm BP: 138 / 72 mmHg Technical Quality: Good Exam Date: 03/01/2025 3:35 PM Patient Status: I Admit Date: 03/01/2025 Exam Type: CA echo doppler color flow Complete two-dimensional, color flow and Doppler transthoracic echocardiogram is performed. Staff Referring Physician: Fidel Mercado Aviation Boatswain'S Mate: Lissa Kaur Attending Provider: Harris Christianson MD Summary 1. Complete two-dimensional, color flow and Doppler transthoracic echocardiogram is performed. 2. Left ventricular systolic function is normal, estimated at 45%. 3. There is mildly increased left ventricular wall thickness. 4. The left ventricular diastolic function is abnormal. 5. Right ventricular chamber dimension is moderately enlarged. 6. Right ventricular systolic function is reduced. 7. Right atrial chamber dimension is moderately enlarged. 8. There is mild to moderate mitral valve regurgitation. 9. There is mild to moderate tricuspid valve regurgitation. 10. Moderate pulmonary hypertension, estimated pulmonary arterial systolic pressure is 45 mmHg. Left Ventricle Left ventricular chamber dimension is normal. Left ventricular systolic function is normal, estimated at 45%. There is mildly increased left ventricular wall thickness. Left ventricular septal wall motion is normal. The left ventricular diastolic function is abnormal. Right Ventricle Right ventricular chamber dimension is moderately enlarged. Right ventricular systolic function is reduced. Left Atria Left atrial chamber dimension is normal. Right Atria Right atrial chamber dimension is moderately enlarged. Aortic Valve The aortic valve is trileaflet. There is no aortic valve sclerosis. There is no aortic valve stenosis. There is no aortic valve regurgitation. Pulmonic Valve The pulmonic valve is normal. There is no pulmonic valve stenosis. There is no pulmonic regurgitation. Mitral Valve The mitral valve has normal leaflets. There is no mitral valve stenosis. There is mild to moderate mitral valve regurgitation. Tricuspid Valve The tricuspid valve leaflets are normal. There is no significant tricuspid valve stenosis. There is mild to moderate tricuspid valve regurgitation. Moderate pulmonary hypertension, estimated pulmonary arterial systolic pressure is 45 mmHg. Pericardium/Pleural The pericardium appears normal. There is no pericardial effusion. Inferior Vena Cava Normal inferior vena cava with >50% collapse upon inspiration consistent with normal right atrial pressure, 5 mmHg. Aorta The aortic root size at the sinus of Valsalva is normal. The prox ascending aorta size is normal. Left Ventricular Outflow Tract Name Value Normal LVOT 2D LVOT Diameter 2.0 cm LVOT Doppler LVOT Peak Velocity 107 cm/s LVOT Peak Gradient 5 mmHg LVOT Mean Gradient 2 mmHg LVOT VTI 25 cm LVOT Stroke Volume 78 ml LVOT CO 3.8 l/min LVOT CI 1.8 l/min/m2 Pulmonic Valve Name Value Normal RVOT Doppler RVOT Peak Velocity 53 cm/s RVOT Peak Gradient 1 mmHg PV Doppler PV Peak Velocity 91 cm/s PV Peak Gradient 3 mmHg Mitral Valve Name Value Normal MV Diastolic Function MV E Peak Velocity 93 cm/s MV A Peak Velocity 30 cm/s MV E/A 3.1 MV Decel Time (PW) 246 ms MV Annular TDI MV E/e' (Septal) 12.9 MV E/e' (Lateral) 7.7 MV E/e' (Average) 10.3 Tricuspid Valve Name Value Normal TV Regurgitation Doppler TR Peak Velocity 316 cm/s TR Peak Gradient 38 mmHg Estimated PAP/RSVP RA Pressure 5 mmHg <=5 PA Systolic Pressure 45 mmHg <36 RV Systolic Pressure 45 mmHg <36 Aortic Valve Name Value Normal AV Doppler AV Peak Velocity 127 cm/s AV Peak Gradient 6 mmHg AV Area (Cont Eq Dominic) 2.7 cm2 AV DI (Dominic) 0.84 AV Regurgitation 2D LVOT Area 3.2 cm2 Ventricles Name Value Normal LV Dimensions 2D/MM IVS Diastolic Thickness (2D) 1.1 cm 0.6-1.0 LVID Diastole (2D) 4.7 cm 4.2-5.8 LVIW Diastolic Thickness (2D) 0.8 cm 0.6-1.0 LVID Systole (2D) 4.2 cm 2.5-4.0 LVOT Diameter 2.0 cm LV Mass (2D Cubed) 155.29 g 88.00-224.00 LV Mass Index (2D Cubed) 76 g/m2 49-115 Relative Wall Thickness (2D) 0.35 <=0.42 LV Fractional Shortening/Ejection Fraction 2D/MM LV Fractional Shortening (2D) 9 % 25-43 LV EF (2D Teichholz) 20 % LV Diastolic Volume (4C MOD) 109 ml LV EF (4C MOD) 46 % LV Diastolic Volume (2C MOD) 162 ml LV EF (2C MOD) 48 % LV Diastolic Volume (BP MOD) 136 ml 62-150 LV Diastolic Volume Index (BP MOD) 66 ml/m2 34-74 LV Systolic Volume (BP MOD) 72 ml 21-61 LV Systolic Volume Index (BP MOD) 35 ml/m2 11-31 LV EF (BP MOD) 47 % 52-72 LV Diastolic Length (4C) 8.3 cm LV Systolic Length (4C) 7.5 cm LV Stroke Volume (4C MOD) 51 ml Atria Name Value Normal LA Dimensions LA Volume (4C A-L) 91 ml LA Volume (BP A-L) 86 ml RA Dimensions RA Systolic Major [place] Length (4C) 7.7 cm 2.1-2.7 RA Area (4C) 39.0 cm2 <=18.0 Report Signatures
--- NOTE | ~2025-03-01 | XR_ITS ---
Examination: XR chest 2V Clinical History: IRREG hr Comparison: 09/21/2023 Technique: PA and Lateral Findings: Cardiomediastinal silhouette normal size and configuration. Lungs clear. No acute bony abnormality. IMPRESSION: 1. No acute cardiopulmonary findings. Reviewed, dictated and finalized at location R.
--- NOTE | 2025-03-01 09:07 | ECG_ITS ---
Test Date: 2025-03-01 09:10:41 Measurements Intervals [place] Rate: 55 P: 0 [place]: 0 QRS: 46 QRSD: 110 T: 28 QT: 422 QTc: 407 Interpretive Statements ATRIAL FIBRILLATION WITH SLOW VENTRICULAR RESPONSE INCOMPLETE RIGHT BUNDLE BRANCH BLOCK POSSIBLE INFERIOR MYOCARDIAL INFARCTION , PROBABLY OLD BORDERLINE ST-T WAVE ABNORMALITY- DIFFUSE LEADS ABNORMAL ECG No previous ECG available for comparison Electronically Signed On 03-01-2025 09:15:53 CDT by Freddy Crawford D.O.
[2025-03-01 09:22] LABS: Hematocrit 41.6 % (42.0-52.0); Hemoglobin 13.7 g/dL (14.0-18.0); Immature Granulocyte Percent A 0.3 % (0-0.5); Lymphocytes Absolute Auto 0.66 K/mm3 (0.9-3.2); Mean Corpuscular HGB Conc 32.9 g/dl (32-36); Mean Corpuscular Hemoglobin 32.9 pg (26-34); Mean Corpuscular Volume 100.0 fl (80-100); Nucleated Red Blood Cells Absolute Auto 0.000 K/mm3 (0.0-0.012); Nucleated Red Blood Cells Perc 0.0 % (0.0-0.2); Platelet Count Result 172 k/mm3 (150-375); Red Blood Count 4.16 M/mm3 (4.6-6.20); White Blood Count 6.1 K/mm3 (4.5-10.0)
[2025-03-01 09:32] LABS: INR 2.8; Prothrombin Time 28.8 Seconds (11.1-14.7)
[2025-03-01 09:33] LABS: Partial Thromboplastin Time 40.3 Seconds (22.3-36.8)
[2025-03-01 09:38] LABS: Alanine Aminotransferase 29 U/L (6-50); Albumin Level 4.1 g/dL (3.5-5.1); Alkaline Phosphatase 196 U/L (38-126); Anion Gap 10 mmol/L (4-12); Aspartate Amino Transferase 33 U/L (17-59); Bilirubin,Total 2.8 mg/dL (0.2-1.3); Blood Urea Nitrogen 12 mg/dL (9-20); Calcium 9.0 mg/dL (8.4-10.2); Carbon Dioxide 22 mmol/L (22-30); Chloride 105 mmol/L (98-107); Estimated CRCL calculation 78 ml/min; Estimated Glomerular Filt Rate > 60; Glucose 81 mg/dL (65-110); Potassium 4.1 mmol/L (3.4-5.0); Sodium 137 mmol/L (137-145); Total Protein 7.4 g/dL (6.3-8.2)
[2025-03-01 09:44] LABS: NT Pro B Type Natriuretic Pept 6960 pg/mL (19.9-100); Troponin I 0.014 ng/mL (0.000-0.034)
--- OUTSIDE RECORDS SUMMARY | 2025-03-01 09:55 | XMS_ITS | Encounter Summary ---
Author Organization [facility] Healthcare Address [address] [place] [address] Care Team Providers Care Airplane Tester Name Role Phone Mike Alex MD Primary Care Provider [phone] Alexis Dawson MD Primary Care Provider [phone] Mike Alex MD Unavailable [phone] Rafa Banks NP Primary Care Provider [phone] Encounter Details Date Type Department Care Team (Late st Contact Info) Description 06/30/2017 Orders Only [facility] Health Information Management [address] [place] [address] Scanning, Provider Social History Tobacco Use Types Packs/Day Years Used Date Smoking Tobacco: Former Cigarettes Q uit: 05/11/1998 Alcohol Use Standard Drinks/Week Comments Yes 0 (1 standard drink = 0.6 oz pur e alcohol) Sex and Gender Information Value Date Recorded Sex Assigned at Not on file Legal Sex Male 5:57 AM COORDINATOR OF HEALTH SERVICES Gender Identity Not on file Sexual Orientation Not on file documented as of this encounter Plan of Treatment Upcoming Encounters Date Type Department Care Team (Late st Contact Info) Description 05/09/2025 9:30 AM COORDINATOR OF HEALTH SERVICES Hospital Encounter [facility] 1 [place] [address] Joseluis Holcomb, DO [address] [place] [address] [place] [address] 05/09/2025 9:30 AM COORDINATOR OF HEALTH SERVICES - 05/09/2025 10:00 AM COORDINATOR OF HEALTH SERVICES Surgery [facility] 1 [place] [address] Joseluis Holcomb, DO [address] [place] [address] [address] [place] [address] COLONOSCOPY Scheduled Procedures Name Priority Associated Diagnoses Date/Ti me COLONOSCOPY Screening for colon cancer 05/09/2025 9:30 AM COORDINATOR OF HEALTH SERVICES documented as of this encounter Procedures Procedure Name Priority Date/Time Associated Diagnosis Comments SCAN - LABS 06/30/2017 documented in this encounter Results * SCAN - LABS (06/30/2017) us Provider Scanning Final Result documented in this encounter Visit Diagnoses Not on filedocumented in this encounter Care Teams Airplane Tester Relationship Specialty Start Date End Date Mike Alex MD PCP - General 04/23/16 06/03/19 Alexis Dawson MD [address] [facility] 1 [place] [address] PCP - General 06/04/19 12/27/19 Rafa Banks NP [address] [place] [address] PCP - General Nurse Practitioner 12/28/19 Mike Alex MD 06/04/19 documented as of this encounter
--- OUTSIDE RECORDS SUMMARY | 2025-03-01 09:55 | XMS_ITS | Encounter Summary ---
Author Organization [facility] Address [address] [facility] [place] [address] Care Team Providers Care Cash Accounting Clerk Name Role Phone Mike Alex MD Primary Care Provider [phone] Yelena Nguyen MD Unavailable Emani Robledo Unavailable Yessy Shah MD Unavailable [phone] Encounter Details Date Type Department Care Team (Late st Contact Info) Description 10/04/2024 Lab Requisition [facility] - DermPath Lab [address] [facility] [place] [address] Nan Solis MD [address] [facility] 3 [place] [address] Social History Tobacco Use Types Packs/Day Years Used Date Smoking Tobacco: Former Smokeless Tobacco: Former Quit: 05/11/1998 Comments:until 1998 Alcohol Use Standard Drinks/Week Comments Yes 0 (1 standard drink = 0.6 oz pur e alcohol) occasional Sex and Gender Information Value Date Recorded Sex Assigned at Not on file Legal Sex Male 5:33 PM PART TIME RECEPTIONIST Gender Identity Not on file Sexual Orientation Not on file documented as of this encounter Plan of Treatment Not on file documented as of this encounter Procedures Procedure Name Priority Date/Time Associated Diagnosis Comments DERMATOPATHOLOGY Routine 10/04/2024 12:5 4 PM CDT documented in this encounter Results * DERMATOPATHOLOGY (10/04/2024 12:54 PM CDT) Case Report Dermatopathology Report Case: [id number] Authorizing Provider: Nan Solis MD Collected: 10/04/2024 12:54 PM Ordering Location: [facility] - Received: 10/05/2024 10:44 AM DermPath Lab Pathologist: Ilana Donnelly MD Specimen: Skin, left wrist 1:51 PM CDT DERMATOPATHOLOGY LABORATORY Final Diagnosis Specimen A. 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 Angela Rae. These tests need not be, and therefore are not, approved by the [place] Food and Drug Administration. The tests are used for clinical purposes. Billing Codes Specimen Charges Stain Charges 59094 1 1:51 PM CDT DERMATOPATHOLOGY LABORATORY Embedded Images 1:51 PM CDT DERMATOPATHOLOGY LABORATORY Pathology/Cytolo gy TISSUE SPECIMEN FROM SKIN / Unknown 10/04/2024 12:54 PM CDT 10/05/2024 10:44 AM CDT Nan Solis MD LAB - PATHOLOGY/CYTOLOGY ORD ERABLES Final Result DERMATOPATHOLOGY LABORATORY [facility] - Department of Dermatology [facility] [address] [facility], 3rd [place] [address], [facility] [phone] documented in this encounter Visit Diagnoses Not on filedocumented in this encounter Care Teams Cash Accounting Clerk Relationship Specialty Start Date End Date Mike Alex MD [address] [facility] 162 [facility] [address] [place] [address] PCP - General 11/19/20 Yelena Nguyen MD [address] [place] [address] [place] [address] Ophthalmology 02/07/21 Emani Robledo [address] [facility] 215 [place] [address] 02/11/21 Yessy Shah MD [address] [facility] [address] [place] [address] Physician Cardiovascular Disease 05/21/21 documented as of this encounter
--- OUTSIDE RECORDS SUMMARY | 2025-03-01 09:55 | XMS_ITS | Clinical Summary ---
Author Organization [facility] Address [address], [address] [address] Phone Care Team Providers Care Tank Pumper Panelboard Name Role Phone Mike Alex MD Primary Care Provider [phone] Allergies No known active allergies Medications lisinopril [...] (HCV) Screening 1950 TdaP Immunization 1950 Cologuard 11/07/1996 Immunochemical Fecal Occult Blood 11/07/1996 Pneumococcal Immunization (5 0+ years) (1 of 1 - PCV) 11/07/2001 Zoster Immunization (1 of 2) 11/07/2001 Respiratory Syncytial Virus (RSV) Immunization (Adult) (1 - Risk 60-74 years 1-dose series) 2011 Medicare Initial AWV [id number] 05/11/2020 Colonoscopy 11/02/2024 11/03/2019, 10/30/2016 Colorectal Cancer Screening 11/02/2024 Influenza Immunization (#1) 2025 SARS-COV-2 Immunization ( - season) 2025 Hepatitis B Immunization Aged Out No longer eligible based on patient's age to complete this topic Human Papillomavirus (HPV) Immunization Aged Out No longer eligible b ased [...] to Health Maintenance Results * COLONOSCOPY (11/03/2019) us Joseluis Holcomb DO PROCEDURE/MINOR SURGICAL ORDERA BLES Final Result from Last 3 Months or Most Recently Relevant to Health Maintenance Insurance MEDICARE C [facility] Care Teams Tank Pumper Panelboard Relationship Specialty Start Date End Date Mike Alex MD PCP - General Internal Medicine 11/01/16
--- OUTSIDE RECORDS SUMMARY | 2025-03-01 09:55 | XMS_ITS | Clinical Summary ---
Author Organization [facility] Address [address] [facility] [place] [address] Care Team Providers Care Director Staffing Name Role Phone Mike Alex MD Primary Care Provider [phone] Yelena Nguyen MD Unavailable [phone] Emani Robledo Unavailable Yessy Shah MD Unavailable [phone] Source Comments [facility],non-owned Affiliates and Associated Physician Practices is amultiple site organization consisting of ambulatory clinics and hospital sitesin [place], [place], [place] and [place]. This disclosure is being madepursuant to the Care Everywhere program and may not contain all information available regarding this patient. Last updated 18.[facility] Allergies No known active allergies Medications * [...] orbital tiss ue 11/25/2015 Other anophthalmos 11/25/2015 Immunizations Immunization Administration Dates Next Due Kelsie Mcgilla primary monova lent 12+ yr 0.5mL 03/19/2021,07/17/2020,06/19/2020 [...] on file Legal Sex Male 5:33 PM ENGAGEMENT LIAISON Gender Identity Not on file Sexual Orientation [...] Health Maintenance Due Date Last Done Comments EDGAR (AGES 45-75) - COL ON CA SCREENING 1950 COLON MONITORING 1950 COLONOSCOPY - COLON CA SCREENING 1950 CT COLONOGRAPHY - COLON CA SCREENING 1950 Colorectal Cancer Screening 1950 FIT - COLON CA SCREENING 1950 FLEX SIG - COLON CA SCREENING 1950 HEPATITIS C SCREENING 11/03/1969 PNEUMOCOCCAL VACCINE 50+ (1 of 2 - PCV) 11/07/1970 AAA SCREENING 11/07/2016 DEPRESSION SCREENING 05/11/2024 MEDICARE AWV CALENDAR YEAR 2024 COVID-19 VACCINE (4 - 2024-2 6 season) 2025 03/19/2021, 07/17/2020, 06/19/2020 INFLUENZA VACCINE (#1) 2025 , 02/28/2020 Respiratory Syncytial Virus (RSV) Vaccine Pt: [...] this topic Medical Devices Implanted Type Area Automobile Technician Device Identifier Shelf Expiration Date Model / Serial / Lot Cnfrmr Opth Sm [place] Pmma N=Dev Strl Lf Implanted:Qty: 1 on 01/11/2021 by Yelena Nguyen MD at [facility] Left: Eye [employer] [facility] 09/11/2021 [id number] / / [id number] Insurance [employer]ETNA MEDICARE ADV Care Teams Director Staffing Relationship Specialty Start Date End Date Mike Alex MD [address] [facility] 162 [facility] 209 [place] [address] PCP - General 11/19/20 Yelena Nguyen MD [address] [facility] DEPT [place] [address] Ophthalmology 02/07/21 Emani Robledo [address] [facility] 215 [place] [address] 02/11/21 Yessy Shah MD [address] [facility] [address] [place] [address] Physician Cardiovascular Disease 05/21/21
--- OUTSIDE RECORDS SUMMARY | 2025-03-01 09:55 | XMS_ITS | Encounter Summary ---
Author Organization [facility] Address [address] [facility] [place] [address] Care Team Providers Care Mothercraft Nurse Name Role Phone Mike Alex MD Primary Care Provider [phone] Yelena Nguyen MD Unavailable [phone] Emain Robledo Unavailable Yessy Shah MD Unavailable [phone] Encounter Details Date Type Department Care Team (Late st Contact Info) Description 07/16/2023 Lab Requisition [facility] - DermPath Lab [address] [facility], [facility] [place] [address] Nan Solis MD [address] [facility] 3 [place] [address] Social History Tobacco Use Types Packs/Day Years Used Date Smoking Tobacco: Former Smokeless Tobacco: Former Quit: 05/11/1998 Comments:until 1998 Alcohol Use Standard Drinks/Week Comments Yes 0 (1 standard drink = 0.6 oz pur e alcohol) occasional Sex and Gender Information Value Date Recorded Sex Assigned at Not on file Legal Sex Male 5:33 PM SEMI AUTOMATIC SEWING MACHINE OPERATOR Gender Identity Not on file Sexual Orientation Not on file documented as of this encounter Plan of Treatment Not on file documented as of this encounter Procedures Procedure Name Priority Date/Time Associated Diagnosis Comments DERMATOPATHOLOGY Routine 07/16/2023 1:18 PM SEMI AUTOMATIC SEWING MACHINE OPERATOR documented in this encounter Results * DERMATOPATHOLOGY (07/16/2023 1:18 PM SEMI AUTOMATIC SEWING MACHINE OPERATOR) Case Report Dermatopathology Report Case: [id number] Authorizing Provider: Nan Solis MD Collected: 07/16/2023 01:18 PM Ordering Location: [facility] - Received: 07/17/2023 01:12 PM DermPath [...] characteristic determined by the Dermatopathology Laboratory at [facility], directed by Dr. Angela Rae. These tests need not be, and therefore are not, approved by the [place] Food and Drug Administration. The tests are used for clinical purposes. Billing Codes Specimen Charges Stain Charges 88033 11061 1 1 4 1:19 PM CDT DERMATOPATHOLOGY LABORATORY Embedded Images 1:19 PM CDT DERMATOPATHOLOGY LABORATORY Pathology/Cytology TISSUE SPECIMEN FROM SKIN / Unknown 07/16/2023 1:18 PM SEMI AUTOMATIC SEWING MACHINE OPERATOR 07/17/2023 1:12 PM SEMI AUTOMATIC SEWING MACHINE OPERATOR Miscellaneous samples (specimen) TISSUE SPECIMEN FROM SKIN / Unknown 07/16/2023 1:18 PM SEMI AUTOMATIC SEWING MACHINE OPERATOR 07/17/2023 1:12 PM SEMI AUTOMATIC SEWING MACHINE OPERATOR us Nan Solis MD LAB - PATHOLOGY/CYTOLOGY ORD ERABLES Final Result DERMATOPATHOLOGY LABORATORY [facility] - Department of Dermatology [facility] Specialized Medicine [address] [facility], 3rd Floor [place], [place] [address] [place] [address] documented in this encounter Visit Diagnoses Not on filedocumented in this encounter Care Teams Mothercraft Nurse Relationship Specialty Start Date End Date Mike Alex MD [address] [facility] [address] [facility] [address] [place] [address] PCP - General 11/19/20 [place] [address] [place] [address] [place] [phone] Ophthalmology 02/07/21 Emani Robledo [address] [place] [address] 02/11/21 Yessy Shah MD [address] [facility] [address] [place] [address] Physician Cardiovascular Disease 05/21/21 documented as of this encounter
--- OUTSIDE RECORDS SUMMARY | 2025-03-01 09:55 | XMS_ITS | Encounter Summary ---
Author Organization [facility] Address [address] [facility] [place] [address] Care Team Providers Care Data Analyst Etl Developer Name Role Phone Alexis Dawson MD Primary Care Provider [phone] Yessy Shah MD Unavailable [phone] Mike Alex MD Primary Care Provider [phone] Yelena Nguyen MD Unavailable [phone] Emani Robledo Unavailable Yessy Shah MD Unavailable [phone] Encounter Details Date Type Department Care Team (Late st Contact Info) Description 11/17/2018 Lab Requisition [facility] Care DermPath Lab [address] 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 Gender Identity Not on file Sexual Orientation Not on file documented as of this encounter Plan of Treatment Not on file documented as of this encounter Procedures Procedure Name Priority Date/Time Associated Diagnosis Comments DERMATOPATH TECHNICAL REPORT Routine 11/16/2018 12:00 AM CDT documented in this encounter Results * DERMATOPATH TECHNICAL REPORT (11/16/2018 12:00 AM CDT) Case Report Dermatopathology Report Case: [id number] Authorizing Provider: Geraldine Jimenez DO Collected: 11/16/2018 12:00 AM Pathologist: Natali Rubio MD Received: 11/17/2018 07:40 AM Specimen: Skin, right cheek 12:49 PM CDT DERMATOPATHOLOGY LABORATORY Clinical History R/O SCC, growing. 12:49 PM CDT DERMATOPATHOLOGY LABORATORY Gross Description Specimen A: Received is one formalin filled container labeled with the patient's name and designated right cheek. The specimen consists of a shave measuring [id number], bisected. Jar 0. [facility] Dermatopathology Laboratory performed the technical component only. [...] characteristic determined by the Dermatopathology Laboratory at [facility], directed by Dr. Angela Rae. These tests need not be, and therefore are not, approved by the [place] Food and Drug Administration. The tests are used for clinical purposes. 12:49 PM CDT DERMATOPATHOLOGY LABORATORY at 1249 CDT Pathology/Cytolog y TISSUE SPECIMEN FROM SKIN / Unknown 11/16/2018 11/17/2018 7:40 AM CDT Geraldine Jimenez DO LAB - PATHOLOGY/CYTOLOGY ORDERABLES Final Result DERMATOPATHOLOGY LABORATORY [facility] - Department of Dermatology [address] [place] [address], 5th Floor Lab [address] [phone] documented in this encounter Visit Diagnoses Not on filedocumented in this encounter Care Teams Data Analyst Etl Developer Relationship Specialty Start Date End Date Alexis Dawson MD [address] [place] [address] PCP - General Internal Medicine 06/13/20 11/18/20 Mike Alex MD [address] [place] [address] PCP - General 11/19/20 Yessy Shah MD [address] [facility] [email or web address] [address] [place] [address] Physician Cardiovascular Disease 06/13/20 2 Yelena Nguyen MD [address] [facility] DEPT [place] [address] Ophthalmology 02/07/21 Emani Robledo [address] [facility] [address] [place] [address] 02/11/21 Yessy Shah MD [address] [place] [address] Physician Cardiovascular Disease 05/21/21 documented as of this encounter
--- OUTSIDE RECORDS SUMMARY | 2025-03-01 09:55 | XMS_ITS | Clinical Summary ---
Author Organization [facility] [address] Address [address] [place] [address] Care Team Providers Care Failure Analysis Technician Name Role Phone Mike Alex MD Unavailable [phone] Rafa Banks NP Primary Care Provider Allergies No known active allergies Medications sacubitriL-valsartan (ENTRESTO) 24-26 mg tabletIndications:ch ronic heart failure Take 1 tablet by mouth 2 (two) times a day 180 tablet 1 4 Active atorvastatin (LIPITOR) 40 mg tabletIndications:Co ronary arteriosclerosis in [place] artery,Hyperlipidemi a, unspecified hyperlipidemia type Take 1 tablet by mouth once daily 90 tablet 2 5 Active atenoloL (TENORMIN) 50 mg tabletIndications:Co ronary arteriosclerosis in [place] artery,Persistent atrial fibrillation (HCC) Take 1 tablet by mouth once daily 90 tablet 5 Active rivaroxaban (Xarelto) 20 mg tabletIndications:Pe rsistent atrial fibrillation (HCC) TAKE 1 TABLET BY MOUTH ONCE DAILY WITH EVENING MEAL 90 tablet 1 5 Active Active Problems Problem Noted Date Diagnosed Date Screening for colon cancer 11/17/2024 Persistent atrial fibrillation 12/28/2019 Chronic anticoagulation 12/15/2018 Hypercholesteremia 04/23/2016 Overview (08/14/2016): Hyperlipidemia, unspecified Non-rheumatic mitral regurgitation 04/23/2016 Overview (08/14/2016): Non-rheumatic mitral regurgitation Essential hypertension 04/23/2016 Overview (08/14/2016): Essential hypertension Coronary arteriosclerosis in [place] artery 01/27 Overview (08/14/2016): Atherosclerosis of [place] coronary artery of [place] heart without angina pectoris Old myocardial infarction 01/28/2016 Overview (08/14/2016): Old [place] (myocardial infarction) Presence of stent in coronary artery 01/28/2016 Overview (08/14/2016): S/P coronary artery stent placement Resolved Problems Problem Noted Date Diagnosed Date Resolved Date Preoperative cardiovascular examination 01/08/2021 03/24/2022 Controlled atrial fibrillation 01/28/2016 12/28/2019 Overview (08/14/2016): Atrial fibrillation, controlled Medical History Medical History Date Comments Hx [...] on file Legal Sex Male 5:57 AM CLIN TECH Gender Identity Not on file Sexual Orientation Not on file Obstetrics History Last Filed Vital Signs Vital Sign Reading Time Taken Comments Blood Pressure 112/60 04/27/2024 11:06 AM CLIN TECH Pulse 68 04/27/2024 11:06 AM CLIN TECH Temperature 36.3 C (97.3 F) 02/21/2020 9:13 AM CDT Respiratory Rate - - Oxygen Saturation 95% 04/27/2024 11:06 AM CLIN TECH Inhaled Oxygen Concentration - - Weight 81.6 kg (180 lb) 04/27/2024 11:06 AM CLIN TECH Height 182.9 cm (6') 04/27/2024 11:06 AM CLIN TECH Body Mass Index 24.41 04/27/2024 11:06 AM CLIN TECH Plan of Treatment Upcoming Encounters Date Type Department Care Team (Late st Contact Info) Description 05/09/2025 9:30 AM CLIN TECH Hospital Encounter [address] [address] Joseluis Holcomb, DO [address] [facility] [address] [place] [address] 05/09/2025 9:30 AM CLIN TECH - 05/09/2025 10:00 AM CLIN TECH Surgery [address] [address] Joseluis Holcomb, [address] [facility] [address] [place] [address] COLONOSCOPY Scheduled Procedures Name Priority Associated Diagnoses Date/Ti me COLONOSCOPY Screening for colon cancer 05/09/2025 9:30 AM CLIN TECH Health Maintenance Due Date Last Done Comments Colon Cancer Screening-Colonoscopy 1950 Depression Screening 1950 Fall Risk Assessment 1950 Hepatitis C Screening 1950 Hepatitis B Screening 11/07/1969 Pneumococcal vaccine 65+ (1 of 1 - PCV) 11/07/2001 Well Visit 65+ 11/07/2016 Covid-19 Vaccine ( season) 2025 03/19/2021, 07/17/2020, 06/19/2020 Influenza Vaccine (#1) 2025 02/28/2020 DTaP/Tdap/Td Vaccine (3 - Td or Tdap) 06/04/2029, 10/19/2018 Abdominal Aortic Aneurysm (A AA) Screen Completed 11/10/2016 Zoster Vaccine Completed 01/27/2019, 10/19/2018 Insurance [employer] MEDICARE Care Teams Failure Analysis Technician Relationship Specialty Start Date End Date Rafa Banks NP PCP - General Nurse Practitioner 12/28/19 Mike Alex MD 06/04/19
--- OUTSIDE RECORDS SUMMARY | 2025-03-01 09:55 | XMS_ITS | Encounter Summary ---
Author Organization [facility] Address [address] [place] [address] Care Team Providers Care Outreach Representative Name Role Phone Mike Alex MD Primary Care Provider [phone] Yelena Nguyen MD Unavailable Emani Robledo Unavailable Yessy Shah MD Unavailable Encounter Details Date Type Department Care Team (Late st Contact Info) Description 01/26/2024 Lab Requisition [facility] - DermPath Lab [address] [facility], [facility] [place] [address] Nan Solis MD [address] [facility] 3 [place] [address] Social History Tobacco Use Types Packs/Day Years Used Date Smoking Tobacco: Former Smokeless Tobacco: Former Quit: 05/11/1998 Comments:until 1998 Alcohol Use Standard Drinks/Week Comments Yes 0 (1 standard drink = 0.6 oz pur e alcohol) occasional Sex and Gender Information Value Date Recorded Sex Assigned at Not on file 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 Gender Identity Not on file Sexual Orientation Not on file documented as of this encounter Plan of Treatment Not on file documented as of this encounter Procedures Procedure Name Priority Date/Time Associated Diagnosis Comments DERMATOPATHOLOGY Routine 01/26/2024 10:0 1 AM CDT documented in this encounter Results * DERMATOPATHOLOGY (01/26/2024 10:01 AM CDT) Case Report Dermatopathology Report Case: [id number] Authorizing Provider: Nan Solis MD Collected: 01/26/2024 10:01 AM Ordering Location: [facility] - Received: 01/26/2024 03:24 PM DermPath Lab [...] at 1414 CDT Clinical History R/ SCC [place] coarse papule 2:14 PM CDT DERMATOPATHOLOGY LABORATORY [...] characteristic determined by the Dermatopathology Laboratory at [facility], directed by Dr. Angela Rae. These tests need not be, and therefore are not, approved by the [place] Food and Drug Administration. The tests are used for clinical purposes. Billing Codes Specimen Charges Stain Charges 22546 57929 1 1 4 2:14 PM CDT DERMATOPATHOLOGY LABORATORY Embedded Images 4 2:14 PM CDT DERMATOPATHOLOGY LABORATORY Pathology/Cytology TISSUE SPECIMEN FROM SKIN / Unknown 01/26/2024 10:01 AM CDT 01/26/2024 3:24 PM CDT Miscellaneous samples (specimen) TISSUE SPECIMEN FROM SKIN / Unknown 01/26/2024 10:01 AM CDT 01/26/2024 3:24 PM CDT Nan Solis MD LAB - PATHOLOGY/CYTOLOGY ORD ERABLES Final Result DERMATOPATHOLOGY LABORATORY [facility] - Department of Dermatology [facility] Specialized Medicine [address] [facility], 3rd Floor [address] [phone] documented in this encounter Visit Diagnoses Not on filedocumented in this encounter Care Teams Outreach Representative Relationship Specialty Start Date End Date Mike Alex MD [address] [facility] [address] [facility] [address] [place] [address] PCP - General 11/19/20 Yelena Nguyen MD [address] [place] [address] [place] [address] Ophthalmology 02/07/21 Emani Robledo [address] [place] [address] 02/11/21 Yessy Shah MD [address] [facility] [address] [place] [address] Physician Cardiovascular Disease 05/21/21 documented as of this encounter
[2025-03-01 10:19] LABS: Add Urine Microscopic? YES; Appearance Urine Clear (Clear); Glucose Urine UA Negative (Negative); Leukocyte Esterase Ur Negative LEU/UL (Negative); Nitrate Urine Negative (Negative); Non Pathogenic Casts 0-2; Specific Grav Ur 1.014 (1.001-1.035)
--- NOTE | 2025-03-01 10:19 | ED.ARRPALP ---
HPI - Arrhythmia/Palpitations General Chief Complaint: Arrhythmia/Palpitations Stated Complaint: DONT FEEL RIGHT Time Seen by Provider: 03/01/25 09:09 Source: patient and family Mode of arrival: ambulatory Limitations: no limitations History of Present Illness HPI narrative: This is a 74 year old male that presents to the ER for chest discomfort. Reports ongoing since yesterday. Reports some exertional shortness of breath. Reports he thought he may be in afib. Denies lower extremity edema. Related Data Home Medications ?Medication ?Instructions ?Recorded ?Confirmed ?Last Taken ?Type atenolol 50 mg tablet 50 mg PO DAILY 09/28/19 11/16/24 11/03/19 06:00 History rivaroxaban 20 mg tablet (Xarelto) 20 mg PO HS 09/28/19 11/16/24 10/30/19 History atorvastatin 40 mg tablet 40 mg PO DAILY 06/12/20 11/16/24 Unknown History sacubitril 24 mg-valsartan 26 mg 1 tablet PO BID 10/08/23 11/16/24 Unknown History tablet (Entresto) Allergies Allergy/AdvReac Type Severity Reaction Status Date / Time No Known Allergies Allergy Verified 03/01/25 09:13 Review of Systems Review of Systems: All systems reviewed & are unremarkable except as noted in HPI and below PMFSH Past Medical History Medical History (Updated 03/01/25 @ 12:14 by Chey Talbot PA-C) BMI 24.0-24.9, adult Preoperative clearance Pelvic pain in male On long term acute care registered nurse drug therapy Mixed hyperlipidemia FHx: prostate cancer ASHD (arteriosclerotic heart disease) Abscess HTN (hypertension) HLD (hyperlipidemia) Adenomatous colon polyp CAD (coronary artery disease) Head injury head injury at age 21 with left eye enucletion Diverticulitis Hx of myocardial infarction 2006 Atrial fibrillation Surgical History Surgical History H/O colonoscopy History of ankle surgery Hx of cardiac catheterization x1 stent 2006 Family History Family History (Updated 11/16/24 @ 08:17 by JOHN De La Vega) Father Malignant neoplasm of prostate Heart disease Cerebrovascular accident Mother Cerebrovascular accident Cancer Social History Social History (Updated 11/16/24 @ 09:33 by JOHN De La Vega) Smoking packs per day: 1 Smoking cigarettes per day: 20.0 Smoking status: Former smoker Second hand tobacco smoke exposure: No Smoking end date: 05/11/98 Alcohol intake: current Drinks per week: 10 Alcohol use details: social Substance use: never Substance use type: does not use Do You Feel Safe in your Home?: Yes Lack of Transportation: No Lack of Food: Never True Current Housing: I Have Housing Concerned About Future Housing: No Difficulty Paying Gas/Electric Bills: No Difficulty Paying for Meds: No Currently Unemployed: No Education: High School Diploma/GED Difficulty w/ Childcare or Family Care: No Living arrangements: with family Occupation/Education: retired Additional occupation/education comments: [employer] Gender identity (if verbalized by the patient): Male Agree to blood products: Yes Exam Narrative: GENERAL: Well-appearing, well-nourished, and in no acute distress. HEAD: Normocephalic, atraumatic. EYES: EOMI. ENT: Nares clear, no rhinorrhea or epistaxis. Mucous membranes moist. NECK: Supple. No adenopathy or masses. CHEST: No respiratory distress. Rales in the bilateral lower lobes. No wheezes or rhonchi HEART: Regular rate and rhythm. No murmur heard. Normal peripheral pulses. EXTREMITIES: Normal range of motion. No edema. SKIN: Warm, dry, no rash. NEURO: No focal deficits. Alert and oriented x3. PSYCH: Normal mood and affect Course Consultations Consultation #1: Spoke with hospitalist about patient and workup who accepts admission Date: 03/01/25 Consultation #2: Spoke with cardiology who will consult Date: 03/01/25 Vital Signs Vital signs: Vital Signs Temperature 97.7 F 03/01/25 09:08 Pulse Rate 65 03/01/25 09:08 Respiratory Rate 16 03/01/25 09:08 Blood Pressure 151/79 H 03/01/25 09:08 Pulse Oximetry 97 03/01/25 09:08 Oxygen Delivery Room Air 03/01/25 09:08 Temperature 97.7 F 03/01/25 09:08 Pulse Rate 57 L 03/01/25 11:47 Respiratory Rate 16 03/01/25 11:47 Blood Pressure 139/79 03/01/25 11:47 Pulse Oximetry 99 03/01/25 11:47 Oxygen Delivery Room Air 03/01/25 09:14 MDM - Arrhythmia/Palpitations MDM Narrative Medical decision making narrative: Patient presents to the emergency department for exertional dyspnea, chest discomfort. Noted to be in atrial fibrillation. Rate largely in the 50s to 60s. Cbc without leukocytosis. Metabolic panel without concerning findings. Rales noted in the lower lungs. BNP 6960. EKG without acute ST changes, baseline troponin is 0.014. Patient will be admitted for further evaluation/management Differential Diagnosis Differential diagnosis: Likely palpitations, anxiety, artial fibrillation, artial flutter, ventricular premature beats and other (angina, CHF) Lab Data Attestation: I reviewed the patient's lab results. 03/01/25 09:16 03/01/25 09:16 Labs: Lab Results 03/01/25 03/01/25 Range/Units 09:16 10:05 WBC 6.1 (4.5-10.0) K/mm3 RBC 4.16 L (4.6-6.20) M/mm3 Hgb 13.7 L (14.0-18.0) g/dL Hct 41.6 L (42.0-52.0) % MCV 100.0 (80-100) fl MCH 32.9 (26-34) pg MCHC 32.9 (32-36) g/dl RDW 14.2 (11.5-14.5) % Plt Count 172 (150-375) k/mm3 MPV 10.6 H (7.4-10.4) fl Immature Gran % (Auto) 0.3 (0-0.5) % Neut % (Auto) 71.8 (45.5-73.1) % Lymph % (Auto) 10.9 L (18.3-44.2) % [place] % (Auto) 9.7 H (2.6-8.5) % Eos % (Auto) 6.3 H (0-4.4) % Baso % (Auto) 1.0 (0.2-1.2) % Lymph # (Auto) 0.66 L (0.9-3.2) K/mm3 [place] # (Auto) 0.6 (0.1-0.6) K/mm3 Eos # (Auto) 0.4 H (0-0.3) K/mm3 Baso # (Auto) 0.1 (0.0-0.1) K/mm3 Abs Immat Gran (auto) 0.02 (0.00-0.031) K/mm3 Absolute Neuts (auto) 4.4 (1.3-6.7) K/mm3 Absolute Nucleated RBC 0.000 (0.0-0.012) K/mm3 Nucleated RBC % 0.0 (0.0-0.2) % PT 28.8 H (11.1-14.7) Seconds INR 2.8 APTT 40.3 H (22.3-36.8) Seconds Sodium 137 (137-145) mmol/L Potassium 4.1 (3.4-5.0) mmol/L Chloride 105 (98-107) mmol/L Carbon Dioxide 22 (22-30) mmol/L Anion Gap 10 (4-12) mmol/L BUN 12 (9-20) mg/dL Creatinine 0.81 (0.7-1.3) mg/dL Estim Creat Clear Calc 78 ml/min Estimated GFR > 60 (59 - ) Glucose 81 (65-110) mg/dL Calcium 9.0 (8.4-10.2) mg/dL Total Bilirubin 2.8 H (0.2-1.3) mg/dL AST 33 (17-59) U/L ALT 29 (6-50) U/L Alkaline Phosphatase 196 H (38-126) U/L Troponin I 0.014 (0.000-0.034) ng/mL NT-Pro-B Natriuret Pep 6960 H (19.9-100) pg/mL Total Protein 7.4 (6.3-8.2) g/dL Albumin 4.1 (3.5-5.1) g/dL Urine Color Yellow (Yellow) Urine Appearance Clear (Clear) Urine pH 7.0 (5.0-9.0) Ur Specific [place] 1.014 (1.001-1.035) Urine Protein 1+ H (Negative) mg/dL Urine Glucose (UA) Negative (Negative) mg/dL Urine Ketones Negative (Negative) mg/dL Ur Blood (Man) Negative (Negative) Urine Nitrate Negative (Negative) Urine Bilirubin Negative (Negative) Urine Urobilinogen 2.0 H (<2.0) mg/dL Leukocyte Esterase Rfl Negative (Negative) ALEXANDRE/UL Urine RBC 0-2 (0-2) /hpf Urine WBC 0-5 (0-3) /hpf Ur Squamous Epith Cells None seen (Few) /hpf Urine Bacteria None seen /hpf Urine Casts 0-2 Imaging Data Radiologist's impression: ITS Impressions Chest X-Ray 03/01/25 09:40 IMPRESSION: 1. No acute cardiopulmonary findings. ECG Data EKG #1: ECG completion date: 03/01/25 EKG Interpretation: atrial fibrillation (slow ventricular response) Critical Care Time Critical Care Time Critical Care Time: No Discharge Plan Discharge Clinical Impression: Exertional dyspnea, Elevated brain natriuretic peptide (BNP) level Atrial fibrillation Qualifiers: Atrial fibrillation type: unspecified Qualified Code(s): I48.91 - Unspecified atrial fibrillation Patient Disposition: Still a Patient Condition: Stable Quality HEART score for chest pain patients History: slightly suspicious ECG: normal Age: > or = to 65 years Risk factors: > or = to 3 risk factors of atherosclerotic disease Troponin: < or = to 1x normal limit Heart score: 4
[2025-03-01] MEDS: ASPIRIN 81 MG CHEWABLE TABLET 324 MG PO (10:50)
--- NOTE | 2025-03-01 12:13 | ADMGEN ---
This patient, Rodo Guerin, was admitted to IMU Room 200-01 at 1152. Patient/family oriented to hospital policies and general routines including ID bracelet, bed and alarms, visiting hours, pain management, procedures, bathroom and other care routines, personal items, smoking policy, room service/diet, and visiting hours. Information on how to activate the Rapid Response Team has been discussed. Patient/Family are encouraged to report perceived risks to care and to ask questions if they do not understand what they are told or what they should do.
--- OUTSIDE RECORDS SUMMARY | 2025-03-01 12:30 | XMS_ITS | Encounter Summary ---
Author Organization [facility] Address [address] [facility] [place] [address] Care Team Providers Care Rock Star Name Role Phone Mike Alex MD Primary Care Provider [phone] Yelena Nguyen MD Unavailable Emani Robledo Unavailable Yessy Shah MD Unavailable [phone] Encounter Details Date Type Department Care Team (Late st Contact Info) Description 10/04/2024 Lab Requisition [facility] - DermPath Lab [address] [facility], [facility] [place] [address] Nan Solis MD [address] [facility] [place] [address] [place] [address] Social History Tobacco Use Types Packs/Day Years Used Date Smoking Tobacco: Former Smokeless Tobacco: Former Quit: 05/11/1998 Comments:until 1998 Alcohol Use Standard Drinks/Week Comments Yes 0 (1 standard drink = 0.6 oz pur e alcohol) occasional Sex and Gender Information Value Date Recorded Sex Assigned at Not on file 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 Gender Identity Not on file Sexual Orientation Not on file documented as of this encounter Plan of Treatment Not on file documented as of this encounter Procedures Procedure Name Priority Date/Time Associated Diagnosis Comments DERMATOPATHOLOGY Routine 10/04/2024 12:5 4 PM CDT documented in this encounter Results * DERMATOPATHOLOGY (10/04/2024 12:54 PM CDT) Case Report Dermatopathology Report Case: [id number] Authorizing Provider: Nan Solis MD Collected: 10/04/2024 12:54 PM Ordering Location: [facility] - Received: 10/05/2024 10:44 AM DermPath Lab Pathologist: Ilana Donnelly MD Specimen: Skin, left wrist 1:51 PM CDT DERMATOPATHOLOGY LABORATORY Final Diagnosis Specimen A. 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 Angela Rae. These tests need not be, and therefore are not, approved by the [place] Food and Drug Administration. The tests are used for clinical purposes. Billing Codes Specimen Charges Stain Charges 80487 1 1:51 PM CDT DERMATOPATHOLOGY LABORATORY Embedded Images 1:51 PM CDT DERMATOPATHOLOGY LABORATORY Pathology/Cytolo gy TISSUE SPECIMEN FROM SKIN / Unknown 10/04/2024 12:54 PM CDT 10/05/2024 10:44 AM CDT Nan Solis MD LAB - PATHOLOGY/CYTOLOGY ORD ERABLES Final Result DERMATOPATHOLOGY LABORATORY [facility] - Department of Dermatology Formerly [facility] Medicine [address] [facility], 3rd [place] [address], [facility] [phone] documented in this encounter Visit Diagnoses Not on filedocumented in this encounter Care Teams Rock Star Relationship Specialty Start Date End Date Mike Alex MD [address] [facility] 162 [facility] 209 [place] [address] PCP - General 11/19/20 Yelena Nguyen MD [address] [place] [address] [place] [address] Ophthalmology 02/07/21 Emani Robledo [address] [facility] 215 [place] [address] 02/11/21 Yessy Shah MD [address] [facility] 162 [address] [place] [address] Physician Cardiovascular Disease 05/21/21 documented as of this encounter
--- OUTSIDE RECORDS SUMMARY | 2025-03-01 12:31 | XMS_ITS | Clinical Summary ---
Author Organization [facility] Address [address] [place] [address] Care Team Providers Care Rent And Housing Investigator Name Role Phone Mike Alex MD Primary Care Provider [phone] Yelena Nguyen MD Unavailable [phone] Emani Robledo Unavailable Yessy Shah MD Unavailable [phone] Source Comments [facility],non-owned Affiliates and Associated Physician Practices is amultiple site organization consisting of ambulatory clinics and hospital sitesin [place], [place] and [place]. This disclosure is being madepursuant to the Care Everywhere program and may not contain all information available regarding this patient. 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 Gender Identity Not on file Sexual Orientation [...] this topic Medical Devices Implanted Type Area Fortune Cookie Maker Device Identifier Shelf Expiration Date Model / Serial / Lot Cnfrmr Opth Sm Sligo Pmma N=Dev Strl Lf Implanted:Qty: 1 on 01/11/2021 by Yelena Nguyen MD at [facility] Left: Eye [facility] [facility] 09/11/2021 [id number] / / [id number] Insurance AETNA MEDICARE ADV Care Teams Rent And Housing Investigator Relationship Specialty Start Date End Date Mike Alex MD [address] [facility] 162 [facility] 209 [place] [address] PCP - General 11/19/20 Yelena Nguyen MD [address] [facility] [place] [address] Ophthalmology 02/07/21 Emani Robledo [address] [facility] 215 [place] [address] 02/11/21 Yessy Shah MD [address] [facility] 162 [address] [place] [address] Physician Cardiovascular Disease 05/21/21
--- OUTSIDE RECORDS SUMMARY | 2025-03-01 12:31 | XMS_ITS | Clinical Summary ---
Author Organization [facility] Address [address], [address] [address] Phone Care Team Providers Care Irrigation Installation Specialist Name Role Phone Mike Alex MD Primary Care Provider [phone] Allergies No known active allergies Medications lisinopril [...] Relevant to Health Maintenance Insurance MEDICARE C [facility] Care Teams Irrigation Installation Specialist Relationship Specialty Start Date End Date Mike Alex MD PCP - General Internal Medicine 11/01/16
--- OUTSIDE RECORDS SUMMARY | 2025-03-01 12:31 | XMS_ITS | Encounter Summary ---
Author Organization [facility] Address [address] [place] [address] Care Team Providers Care Pbx Teacher Name Role Phone Mike Alex MD Primary Care Provider [phone] Yelena Nguyen MD Unavailable Emani Robledo Unavailable Yessy Shah MD Unavailable [phone] Encounter Details Date Type Department Care Team (Late st Contact Info) Description 07/16/2023 Lab Requisition [facility] - DermPath Lab [address] [facility], [place] [address] Nan Solis MD [address] [facility] 3 [place] [address] Social History Tobacco Use Types Packs/Day Years Used Date Smoking Tobacco: Former Smokeless Tobacco: Former Quit: 05/11/1998 Comments:until 1998 Alcohol Use Standard Drinks/Week Comments Yes 0 (1 standard drink = 0.6 oz pur e alcohol) occasional Sex and Gender Information Value Date Recorded Sex Assigned at Not on file Legal Sex Male 5:33 PM GIS PROGRAMMER Gender Identity Not on file Sexual Orientation Not on file documented as of this encounter Plan of Treatment Not on file documented as of this encounter Procedures Procedure Name Priority Date/Time Associated Diagnosis Comments DERMATOPATHOLOGY Routine 07/16/2023 1:18 PM GIS PROGRAMMER documented in this encounter Results * DERMATOPATHOLOGY (07/16/2023 1:18 PM GIS PROGRAMMER) Case Report Dermatopathology Report Case: [id number] Authorizing Provider: Nan Solis MD Collected: 07/16/2023 01:18 PM Ordering Location: [facility] - Received: 07/17/2023 01:12 PM DermPath [...] characteristic determined by the Dermatopathology Laboratory at [facility], directed by Dr. Angela Rae. These tests need not be, and therefore are not, approved by the [place] Food and Drug Administration. The tests are used for clinical purposes. Billing Codes Specimen Charges Stain Charges 20060 38998 1 1 4 1:19 PM CDT DERMATOPATHOLOGY LABORATORY Embedded Images 1:19 PM CDT DERMATOPATHOLOGY LABORATORY Pathology/Cytology TISSUE SPECIMEN FROM SKIN / Unknown 07/16/2023 1:18 PM GIS PROGRAMMER 07/17/2023 1:12 PM GIS PROGRAMMER Miscellaneous samples (specimen) TISSUE SPECIMEN FROM SKIN / Unknown 07/16/2023 1:18 PM GIS PROGRAMMER 07/17/2023 1:12 PM GIS PROGRAMMER us Nan Solis MD LAB - PATHOLOGY/CYTOLOGY ORD ERABLES Final Result DERMATOPATHOLOGY LABORATORY [facility] - Department of Dermatology [facility] Specialized Medicine [address] [facility], 3rd Floor [place], [place] [address] [place] [address] documented in this encounter Visit Diagnoses Not on filedocumented in this encounter Care Teams Pbx Teacher Relationship Specialty Start Date End Date iMke Alex MD [address] [facility] [address] [facility] 209 [place] [address] PCP - General 11/19/20 [place] [address] [place] [address] [place] [address] Ophthalmology 02/07/21 Emani Robledo [address] [place] [address] 02/11/21 Yessy Shah MD [address] [facility] [address] [place] [address] Physician Cardiovascular Disease 05/21/21 documented as of this encounter
--- OUTSIDE RECORDS SUMMARY | 2025-03-01 12:31 | XMS_ITS | Encounter Summary ---
Author Organization [facility] Address [address] [facility] [place] [address] Care Team Providers Care Hog Counter Name Role Phone Alexis Dawson MD Primary Care Provider [phone] Yessy Shah MD Unavailable [phone] Mike Alex MD Primary Care Provider [phone] Yelena Nguyen MD Unavailable [phone] Emani Robledo Unavailable Yessy Shah MD Unavailable [phone] Encounter Details Date Type Department Care Team (Late st Contact Info) Description 11/17/2018 Lab Requisition [facility] Care DermPath Lab [address] [facility], [place] [address] Geraldine Jimenez, [address] [facility] 3 [place] [address] Social History Tobacco Use Types Packs/Day Years Used Date Smoking Tobacco: Former Smokeless Tobacco: Former Quit: 05/11/1998 Alcohol Use Standard Drinks/Week Comments Yes 0 (1 standard drink = 0.6 oz pur e alcohol) Sex and Gender Information Value Date Recorded Sex Assigned at Not on file Legal Sex Male 5:33 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 Gender Identity Not on file Sexual Orientation Not on file documented as of this encounter Plan of Treatment Not on file documented as of this encounter Procedures Procedure Name Priority Date/Time Associated Diagnosis Comments DERMATOPATH TECHNICAL REPORT Routine 11/16/2018 12:00 AM CDT documented in this encounter Results * DERMATOPATH TECHNICAL REPORT (11/16/2018 12:00 AM CDT) Case Report Dermatopathology Report Case: [id number] Authorizing Provider: Geraldine Jimenez DO Collected: 11/16/2018 12:00 AM Pathologist: Natali Rubio MD Received: 11/17/2018 07:40 AM Specimen: Skin, right cheek 12:49 PM CDT DERMATOPATHOLOGY LABORATORY Clinical History R/O SCC, growing. 12:49 PM CDT DERMATOPATHOLOGY LABORATORY Gross Description Specimen A: Received is one formalin filled container labeled with the patient's name and designated right cheek. The specimen consists of a shave measuring [id number], bisected. Jar 0. [facility] Dermatopathology Laboratory performed the technical component only. [...] - PATHOLOGY/CYTOLOGY ORDERABLES Final Result DERMATOPATHOLOGY LABORATORY [facility] - Department of Dermatology [address] [place] [address], 5th Floor Lab [address] [phone] documented in this encounter Visit Diagnoses Not on filedocumented in this encounter Care Teams Hog Counter Relationship Specialty Start Date End Date Alexis Dawson MD [address] [place] [address] PCP - General Internal Medicine 06/13/20 11/18/20 Mike Alex MD [address] [place] [address] PCP - General 11/19/20 Yessy Shah MD [address] [facility] 2310 [place] [address] Physician Cardiovascular Disease 06/13/20 2 Yelena Nguyen MD [address] [facility] DEPT [place] [address] Ophthalmology 02/07/21 Emani Robledo [address] [facility] 215 [place] [address] 02/11/21 Yessy Shah MD [address] [place] [address] Physician Cardiovascular Disease 05/21/21 documented as of this encounter
--- OUTSIDE RECORDS SUMMARY | 2025-03-01 12:31 | XMS_ITS | Encounter Summary ---
Author Organization [facility] Address [address] [place] [address] Care Team Providers Care Research Professor Name Role Phone Mike Alex MD Primary Care Provider [phone] Yelena Nguyen MD Unavailable [phone] Emani Robledo Unavailable Yessy Shah MD Unavailable [phone] Encounter Details Date Type Department Care Team (Late st Contact Info) Description 01/26/2024 Lab Requisition [facility] - DermPath Lab [address] [facility], [facility] [place] [address] Nan Solis MD [address] [facility] 3 DE[place] [address] Social History Tobacco Use Types Packs/Day Years Used Date Smoking Tobacco: Former Smokeless Tobacco: Former Quit: 05/11/1998 Comments:until 1998 Alcohol Use Standard Drinks/Week Comments Yes 0 (1 standard drink = 0.6 oz pur e alcohol) occasional Sex and Gender Information Value Date Recorded Sex Assigned at Not on file Legal Sex Male 5:33 PM 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 Gender Identity Not on file Sexual Orientation Not on file documented as of this encounter Plan of Treatment Not on file documented as of this encounter Procedures Procedure Name Priority Date/Time Associated Diagnosis Comments DERMATOPATHOLOGY Routine 01/26/2024 10:0 1 AM CDT documented in this encounter Results * DERMATOPATHOLOGY (01/26/2024 10:01 AM CDT) Case Report Dermatopathology Report Case: [id number] Authorizing Provider: Nan Solis MD Collected: 01/26/2024 10:01 AM Ordering Location: [facility] - Received: 01/26/2024 03:24 PM DermPath Lab [...] at 1414 CDT Clinical History 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 Angela Rae. These tests need not be, and therefore are not, approved by the [place] Food and Drug Administration. The tests are used for clinical purposes. Billing Codes Specimen Charges Stain Charges 21012 75380 1 1 4 2:14 PM CDT DERMATOPATHOLOGY LABORATORY Embedded Images 4 2:14 PM CDT DERMATOPATHOLOGY LABORATORY Pathology/Cytology TISSUE SPECIMEN FROM SKIN / Unknown 01/26/2024 10:01 AM CDT 01/26/2024 3:24 PM CDT Miscellaneous samples (specimen) TISSUE SPECIMEN FROM SKIN / Unknown 01/26/2024 10:01 AM CDT 01/26/2024 3:24 PM CDT Nan Solis MD LAB - PATHOLOGY/CYTOLOGY ORD ERABLES Final Result DERMATOPATHOLOGY LABORATORY [facility] - Department of Dermatology [facility] Specialized Medicine [address] [facility], 3rd Floor [address] [phone] documented in this encounter Visit Diagnoses Not on filedocumented in this encounter Care Teams Research Professor Relationship Specialty Start Date End Date Mike Alex MD [address] [facility] [address] [facility] 209 [place] [address] PCP - General 11/19/20 Yelena Nguyen MD [address] [place] [address] DEPT [place] [address] Ophthalmology 02/07/21 Emani Robledo [address] [place] [address] 02/11/21 Yessy Shah MD [address] [facility] [address] [place] [address] Physician Cardiovascular Disease 05/21/21 documented as of this encounter
--- OUTSIDE RECORDS SUMMARY | 2025-03-01 12:31 | XMS_ITS | Encounter Summary ---
Author Organization [facility] Address [address] [place] [address] Care Team Providers Care Producer Arborist Manager Name Role Phone Mike Alex MD Primary Care Provider [phone] Alexis Dawson MD Primary Care Provider [phone] Mike Alex MD Unavailable [phone] Rafa Banks NP Primary Care Provider [phone] Encounter Details Date Type Department Care Team (Late st Contact Info) Description 06/30/2017 Orders Only [facility] Information Management [address] [place] [address] Scanning, Provider Social History Tobacco Use Types Packs/Day Years Used Date Smoking Tobacco: Former Cigarettes Q uit: 05/11/1998 Alcohol Use Standard Drinks/Week Comments Yes 0 (1 standard drink = 0.6 oz pur e alcohol) Sex and Gender Information Value Date Recorded Sex Assigned at Not on file Legal Sex Male 5:57 AM MEALS ON WHEELS DRIVER Gender Identity Not on file Sexual Orientation Not on file documented as of this encounter Plan of Treatment Upcoming Encounters Date Type Department Care Team (Late st Contact Info) Description 05/09/2025 9:30 AM MEALS ON WHEELS DRIVER Hospital Encounter [facility] 1 [place] [address] Joseluis Holcomb, DO [address] [place] [address] [place] [address] 05/09/2025 9:30 AM MEALS ON WHEELS DRIVER - 05/09/2025 10:00 AM MEALS ON WHEELS DRIVER Surgery [facility] 1 [place] [address] Joseluis Holcomb, DO [address] [place] [address] [address] [place] [address] COLONOSCOPY Scheduled Procedures Name Priority Associated Diagnoses Date/Ti me COLONOSCOPY Screening for colon cancer 05/09/2025 9:30 AM MEALS ON WHEELS DRIVER documented as of this encounter Procedures Procedure Name Priority Date/Time Associated Diagnosis Comments SCAN - LABS 06/30/2017 documented in this encounter Results * SCAN - LABS (06/30/2017) us Provider Scanning Final Result documented in this encounter Visit Diagnoses Not on filedocumented in this encounter Care Teams Producer Arborist Manager Relationship Specialty Start Date End Date Mike Alex MD PCP - General 04/23/16 06/03/19 Alexis Dawson MD [address] [facility] 1 [place] [address] PCP - General 06/04/19 12/27/19 Rafa Banks NP [address] [place] [address] PCP - General Nurse Practitioner 12/28/19 Mike Alex MD 06/04/19 documented as of this encounter
--- OUTSIDE RECORDS SUMMARY | 2025-03-01 12:31 | XMS_ITS | Clinical Summary ---
Author Organization [facility] [place] [place] [address] Address [address] [place] [address] Care Team Providers Care Adjunct Art History Instructor Name Role Phone Mike Alex MD Unavailable [phone] Rafa Banks NP Primary Care Provider [phone] Allergies No known active allergies Medications sacubitriL-valsartan (ENTRESTO) 24-26 mg tabletIndications:ch ronic heart failure Take 1 tablet by mouth 2 (two) times a day 180 tablet 1 4 Active atorvastatin (LIPITOR) 40 mg tabletIndications:Co ronary arteriosclerosis in [place] artery,Hyperlipidemi a, unspecified hyperlipidemia type Take 1 tablet by mouth once daily 90 tablet 2 5 Active atenoloL (TENORMIN) 50 mg tabletIndications:Co ronary arteriosclerosis in [place] artery,Persistent atrial fibrillation (HCC) Take 1 tablet [...] Overview (08/14/2016): Essential hypertension Coronary arteriosclerosis in [place] artery 01/27 Overview (08/14/2016): Atherosclerosis of [place] coronary artery of [place] heart without angina pectoris Old myocardial infarction 01/28/2016 Overview (08/14/2016): Old [place] (myocardial infarction) Presence of stent in coronary [...] on file Legal Sex Male 5:57 AM PRINT FINISHING WORKER Gender Identity Not on file Sexual Orientation Not on file Obstetrics History Last Filed Vital Signs Vital Sign Reading Time Taken Comments Blood Pressure 112/60 04/27/2024 11:06 AM PRINT FINISHING WORKER Pulse 68 04/27/2024 11:06 AM PRINT FINISHING WORKER Temperature 36.3 C (97.3 F) 02/21/2020 9:13 AM CDT Respiratory Rate - - Oxygen Saturation 95% 04/27/2024 11:06 AM PRINT FINISHING WORKER Inhaled Oxygen Concentration - - Weight 81.6 kg (180 lb) 04/27/2024 11:06 AM PRINT FINISHING WORKER Height 182.9 cm (6') 04/27/2024 11:06 AM PRINT FINISHING WORKER Body Mass Index 24.41 04/27/2024 11:06 AM PRINT FINISHING WORKER Plan of Treatment Upcoming Encounters Date Type Department Care Team (Late st Contact Info) Description 05/09/2025 9:30 AM PRINT FINISHING WORKER Hospital Encounter [address] [address] Joseluis Holcomb, DO [address] [facility] [address] [place] [address] 05/09/2025 9:30 AM PRINT FINISHING WORKER - 05/09/2025 10:00 AM PRINT FINISHING WORKER Surgery [address] [address] Joseluis Holcomb, [address] [facility] [address] [place] [address] COLONOSCOPY Scheduled Procedures Name Priority Associated Diagnoses Date/Ti me COLONOSCOPY Screening for colon cancer 05/09/2025 9:30 AM PRINT FINISHING WORKER Health Maintenance Due Date Last Done Comments [...] 01/27/2019, 10/19/2018 Insurance [employer] MEDICARE Care Teams Adjunct Art History Instructor Relationship Specialty Start Date End Date Rafa Banks NP PCP - General Nurse Practitioner 12/28/19 Mike Alex MD 06/04/19
[2025-03-01 13:08] LABS: Troponin I < 0.012 ng/mL (0.000-0.034)
--- NOTE | 2025-03-01 13:48 | P.CONCA_ITS ---
Assessment and Plan Assessment and plan (1) Atrial fibrillation: Qualifiers: Atrial fibrillation type: unspecified Qualified Code(s): I48.91 - Unspecified atrial fibrillation Code(s): I48.91 - Unspecified atrial fibrillation Status: Acute (2) Exertional dyspnea: Code(s): R06.09 - Other forms of dyspnea Status: Acute (3) HTN (hypertension): Qualifiers: Hypertension type: essential hypertension Qualified Code(s): I10 - Essential (primary) hypertension Code(s): I10 - Essential (primary) hypertension Status: Acute (4) HLD (hyperlipidemia): Qualifiers: Hyperlipidemia type: other hyperlipidemia Qualified Code(s): E78.49 - Other hyperlipidemia Code(s): E78.5 - Hyperlipidemia, unspecified Status: Acute Plan Shortness of breath. Patient reports noting LUJAN for the last 1-2 days, associated with skipped beats. He was noted to have an elevated pBNP on admission of 6960. On exam however, patient does not appear acutely volume overloaded. His CXR was clear without any acute cardiopulmonary process. His troponin have been in normal range x 2. EKG demonstrates atrial fibrillation with no acute ST/T wave changes. I will order echo to look for any LV dysfunction or wall motion abnormality. His last echo in 2023 demonstrated an EF of 45-50% with combined systolic/diastolic dysfunction, with severe LAE and AVRIL. Moderate MR and moderate pulmonary hypertension. Will give a one time dose of IV lasix and monitor given reports of LUJAN Acute on chronic combined systolic and diastolic HF. EF of 45-50% on last echo repeat echo is pending. Would give one time dose of IV lasix 20 mg. Would resume his home entresto 24-26mg BID. Hold his BB in the setting of bradycardia persistent atrial fibrillation. chronic he is currently bradycardic and would hold his atenolol. Will check Magnesium level and TSH. May benefit from OP tele monitor to r/o any arrhythmia/bradycardia/pauses. Will continue xarelto 20 mg daily for AC Hypertension. Blood pressure with reasonable control. Would continue entresto 24-26 mg BID as noted above. History of CAD. with history of [place] in 2007 and stent to RCA. NO aspirin as on xarelto. Continue atorvastatin 40 mg daily Possible ASD vs PFO. As left to right shunt noted on last echo. Continue on xarelto 20 mg daily Hyperlipidemia. Continue atorvastatin 40 mg daily * will give dose of IV lasix in setting of LUJAN and elevated pBNP with known CHF * Will update echo * monitor on tele overnight. * may benefit from stress test on OP basis History of Present Illness History of Present Illness Consult date/time: 03/01/25 13:48 Requesting physician: Chey Talbot PA-C Consult reason: atrial fibrillation and shortness of breath Reason For Visit: CHF/EXERTIONAL DYSPNEA Narrative: Rodo Guerin is a 74 y.o. male with a PMH of CAD, HLD and persistent atrial fibrillation who presented to the ER with c/o shortness of breath and feeling jittery. 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 He was driving when he began feeling jittery, and as if he was in atrial fibrillation. He did experience some shortness of breath with the episode. He denies any associated chest pain or pressure. No dizziness or palpitations. He got up this morning to have his coffee, but decided not to as he continued to feel unwell. He decided at that point to come into the ER. Review of Systems 2 Review of Systems: All systems reviewed & are unremarkable except as noted in HPI and below PMFSH Past Medical History Medical History (Updated 03/01/25 @ 13:54 by Yolanda Thomas, [place]) BMI 24.0-24.9, adult Preoperative clearance Pelvic pain in male On long term care social worker drug therapy Mixed hyperlipidemia FHx: prostate cancer ASHD (arteriosclerotic heart disease) Abscess HTN (hypertension) HLD (hyperlipidemia) Adenomatous colon polyp CAD (coronary artery disease) Head injury head injury at age 21 with left eye enucletion Diverticulitis Hx of myocardial infarction 2007 Atrial fibrillation Surgical History Surgical History H/O colonoscopy History of ankle surgery Hx of cardiac catheterization x1 stent 2006 Family History Family History Father Malignant neoplasm of prostate Heart disease Cerebrovascular accident Mother Cerebrovascular accident Cancer Social History Social History (Updated 11/16/24 @ 09:33 by JOHN De La Vega) Smoking packs per day: 1 Smoking cigarettes per day: 20.0 Smoking status: Former smoker Tobacco type: cigarettes Second hand tobacco smoke exposure: No Smoking end date: 05/03/99 Alcohol intake: current Drinks per week: 6 Alcohol use details: social Substance use: never Substance use type: does not use Do You Feel Safe in your Home?: Yes Lack of Transportation: No Lack of Food: Never True Current Housing: I Have Housing Concerned About Future Housing: No Difficulty Paying Gas/Electric Bills: No Difficulty Paying for Meds: No Currently Unemployed: No Education: Associate Degree Difficulty w/ Childcare or Family Care: No Living arrangements: with family Occupation/Education: retired Additional occupation/education comments: [employer] Gender identity (if verbalized by the patient): Male Spiritual care concerns: Yes Agree to blood products: Yes Meds Home Medications and Allergies Home Medications ?Medication ?Instructions ?Recorded ?Confirmed ?Type atenolol 50 mg tablet 50 mg PO DAILY 09/28/1902/09 History rivaroxaban 20 mg tablet (Xarelto) 20 mg PO HS 0 03/01/25 History atorvastatin 40 mg tablet 40 mg PO DAILY 06/12/2002/09 History sacubitril 24 mg-valsartan 26 mg 1 tablet PO BID 10/0703/01/25 History tablet (Entresto) Allergies Allergy/AdvReac Type Severity Reaction Status Date / Time No Known Allergies Allergy Verified 03/01/25 12:38 Vital Signs Vital Signs - 24 hr 03/01/25 09:08 03/01/25 09:14 03/01/25 10:06 Temperature 36.5 C Pulse Rate 65 63 Respiratory Rate 16 12 Blood Pressure 151/79 H Pulse Oximetry 97 98 96 Oxygen Delivery Room Air Room Air 03/01/25 10:26 03/01/25 10:30 03/01/25 11:47 Temperature Pulse Rate 61 62 57 L Respiratory Rate 16 9 L 16 Blood Pressure 139/79 Pulse Oximetry 96 96 99 Oxygen Delivery Exam 2 Const: General: comfortable and no acute distress Neck: Neck: supple and No no JVD Carotids: no bruits Resp: Effort & Inspection: normal respiratory effort Auscultation: clear to auscultation bilaterally Cardio: Rate: bradycardic Rhythm: abnormal rhythm Heart sounds: no murmurs and no rubs Skin: General skin exam: normal color and no erythema Neuro: Speech: normal speech Extrem: General: normal to inspection and no edema Psych: Mental Status: mental status grossly normal Results Labs and Meds 03/01/25 09:16 03/01/25 09:16 Lab results: Cardiac Enzymes 03/01/25 03/01/25 Range/Units 09:16 12:22 AST 33 (17-59) U/L Troponin I 0.014 < 0.012 (0.000-0.034) ng/mL Coagulation 03/01/25 Range/Units 09:16 PT 28.8 H (11.1-14.7) Seconds APTT 40.3 H (22.3-36.8) Seconds CBC 03/01/25 Range/Units 09:16 WBC 6.1 (4.5-10.0) K/mm3 RBC 4.16 L (4.6-6.20) M/mm3 Hgb 13.7 L (14.0-18.0) g/dL Hct 41.6 L (42.0-52.0) % Plt Count 172 (150-375) k/mm3 Lymph # (Auto) 0.66 L (0.9-3.2) K/mm3 [place] # (Auto) 0.6 (0.1-0.6) K/mm3 Eos # (Auto) 0.4 H (0-0.3) K/mm3 Baso # (Auto) 0.1 (0.0-0.1) K/mm3 Comprehensive Metabolic Panel 03/01/25 Range/Units 09:16 Sodium 137 (137-145) mmol/L Potassium 4.1 (3.4-5.0) mmol/L Chloride 105 (98-107) mmol/L Carbon Dioxide 22 (22-30) mmol/L BUN 12 (9-20) mg/dL Creatinine 0.81 (0.7-1.3) mg/dL Glucose 81 (65-110) mg/dL Calcium 9.0 (8.4-10.2) mg/dL AST 33 (17-59) U/L ALT 29 (6-50) U/L Alkaline Phosphatase 196 H (38-126) U/L Total Protein 7.4 (6.3-8.2) g/dL Albumin 4.1 (3.5-5.1) g/dL Patient Weight 03/01/25 23:59 Weight 82.7 kg EKG Interpretation EKG shows: atrial fibrillation (with rate of 55 bpm, incomplete RBBB )
--- NOTE | 2025-03-01 14:37 | PM.IMHP ---
H&P: HPI History of Present Illness Date/Time: 03/01/25 14:37 Chief Complaint: 'Jitteriness' Narrative: 74yo male with HTN, HLD, CAD and AFib who presents with jitteriness. 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 No chest with activity. This morning, he had jitteriness all over but mostly focused in the chest. He thought he might be in AFib. He did not check his BP or HR at home. No back pain, jaw pain or arm pain. His last stress test was 2015. He denies feeling anxious. No chest pain but with shortness of breath. He is compliant with his home medications. No nausea or vomiting. He presented to the emergency room for evaluation. In the emergency room, he was hemodynamically stable. His pulse was 65. He was not febrile or hypoxic. CBC was unremarkable. CMP was unremarkable except for a total bilirubin 2.8 and an alk phos 196. This has been noted before. INR was 2.8. Troponin negative x2. BNP was 6960. UA showed 1+ protein. TSH pending. Chest x-ray was reviewed and was clear. EKG reviewed showing atrial fibrillation with heart rate of 55 and incomplete right bundle branch block. Borderline ST-T wave changes in the anterior leads. He was given aspirin. He was admitted for further care. Cardiology was consulted has already seen the patient. Patient received Lasix x1. Review of Systems Review of Systems: All systems reviewed & are unremarkable except as noted in HPI and below PMFSH Past Medical History Medical History (Updated 03/01/25 @ 15:54 by Harris Christianson MD) BMI 24.0-24.9, adult Preoperative clearance Pelvic pain in male On intermediate drug therapy Mixed hyperlipidemia FHx: prostate cancer ASHD (arteriosclerotic heart disease) Abscess HTN (hypertension) HLD (hyperlipidemia) Adenomatous colon polyp CAD (coronary artery disease) Head injury head injury at age 21 with left eye enucletion Diverticulitis Hx of myocardial infarction 2006 Atrial fibrillation Surgical History Surgical History H/O colonoscopy History of ankle surgery Hx of cardiac catheterization x1 stent 2006 Family History Family History (Updated 03/01/25 @ 15:29 by Harris Christianson MD) Father Malignant neoplasm of prostate Heart disease Cerebrovascular accident Mother Cerebrovascular accident Cancer Atrial fibrillation Social History Social History (Updated 03/01/25 @ 15:32 by Harris Christianson MD) Social History: Quit tobacco 1998 after smoking up to 2ppd x 30yrs. Alcohol up to 8 drinks per week. No drug use. Lives with . Code status - full Surrogate decision maker - Smoking packs per day: 1 Smoking cigarettes per day: 20.0 Smoking status: Former smoker Tobacco type: cigarettes Second hand tobacco smoke exposure: No Smoking end date: 05/03/99 Alcohol intake: current Drinks per week: 6 Alcohol use details: social Substance use: never Substance use type: does not use Do You Feel Safe in your Home?: Yes Lack of Transportation: No Lack of Food: Never True Current Housing: I Have Housing Concerned About Future Housing: No Difficulty Paying Gas/Electric Bills: No Difficulty Paying for Meds: No Currently Unemployed: No Education: Associate Degree Difficulty w/ Childcare or Family Care: No Living arrangements: with family Occupation/Education: retired Additional occupation/education comments: [employer] Gender identity (if verbalized by the patient): Male Spiritual care concerns: Yes Agree to blood products: Yes Meds Home Medications and Allergies Home Medications ?Medication ?Instructions ?Recorded ?Confirmed ?Type atenolol 50 mg tablet 50 mg PO DAILY 09/28/19 03/01/25 History rivaroxaban 20 mg tablet (Xarelto) 20 mg PO HS 09/28/19 03/01/25 History atorvastatin 40 mg tablet 40 mg PO DAILY 06/12/20 03/01/25 History sacubitril 24 mg-valsartan 26 mg 1 tablet PO BID 10/08/23 03/01/25 History tablet (Entresto) Allergies Allergy/AdvReac Type Severity Reaction Status Date / Time No Known Allergies Allergy Verified 03/01/25 12:38 Vital Signs Vital Signs - 24 hr 03/01/25 09:08 03/01/25 09:14 03/01/25 10:06 Temperature 97.7 F Pulse Rate 65 63 Respiratory Rate 16 12 Blood Pressure 151/79 H Pulse Oximetry 97 98 96 Oxygen Delivery Room Air Room Air 03/01/25 10:26 03/01/25 10:30 03/01/25 11:47 Temperature Pulse Rate 61 62 57 L Respiratory Rate 16 9 L 16 Blood Pressure 139/79 Pulse Oximetry 96 96 99 Oxygen Delivery 03/01/25 12:00 03/01/25 12:13 03/01/25 14:00 Temperature 97.8 F Pulse Rate 62 76 53 L Respiratory Rate 18 Blood Pressure 138/72 Pulse Oximetry 91 Oxygen Delivery Exam Narrative: AF 97.8 138/72 53 18 91% ra Gen - well appearing male in no acute respiratory distress who is nontoxic-appearing lying semi recumbent in bed HEENT - normocephalic. Atraumatic. Pupils equal round and reactive. Right pupil reactive. Nares patent. Oropharynx was clear. No oral lesions. Moist mucous membranes. Tongue was midline. Palate riri symmetrically. No facial asymmetry. Neck - neck was supple. No dominant adenopathy, thyromegaly or masses. 2+ carotid upstrokes without bruits. Chest - lungs are clear to auscultation bilaterally. No wheezes or crackles. CV - heart was irregularly irregular and bradycardic. S1-S2. No murmurs gallops or rubs. Abd - abdomen was soft. Nontender. Nondistended. Positive bowel sounds. No organomegaly or masses. Ext - no clubbing, cyanosis or edema. 2+ DP pulses bilaterally. Neuro - patient is alert and oriented x4. Strength is 5/5 in both upper and lower extremities. Cranial nerves 2-12 are intact. Speech is clear. Psych - normal mood and affect. Patient is pleasant and cooperative. Skin - warm and dry. No rashes noted. H&P: Results Labs Labs: Short CBC 03/01/25 Range/Units 09:16 WBC 6.1 (4.5-10.0) K/mm3 Hgb 13.7 L (14.0-18.0) g/dL Hct 41.6 L (42.0-52.0) % Plt Count 172 (150-375) k/mm3 BMP 03/01/25 09:16 Sodium 137 Potassium 4.1 Chloride 105 Carbon Dioxide 22 BUN 12 Creatinine 0.81 Glucose 81 Calcium 9.0 Cardiac Enzymes 03/01/25 03/01/25 Range/Units 09:16 12:22 Troponin I 0.014 < 0.012 (0.000-0.034) ng/mL Liver Function 03/01/25 Range/Units 09:16 Total Bilirubin 2.8 H (0.2-1.3) mg/dL AST 33 (17-59) U/L ALT 29 (6-50) U/L Alkaline Phosphatase 196 H (38-126) U/L Albumin 4.1 (3.5-5.1) g/dL Urine 03/01/25 Range/Units 10:05 Urine Color Yellow (Yellow) Urine Appearance Clear (Clear) Urine pH 7.0 (5.0-9.0) Ur Specific [place] 1.014 (1.001-1.035) Urine Protein 1+ H (Negative) mg/dL Urine Glucose (UA) Negative (Negative) mg/dL ECG Attestation: I personally reviewed and interpreted this ECG as follows: (atrial fibrillation with heart rate of 55 and incomplete right bundle branch block.) Imaging Chest x-ray: My impression: clear Assessment and Plan Assessment and plan (1) Atrial fibrillation: Qualifiers: Atrial fibrillation type: unspecified Qualified Code(s): I48.91 - Unspecified atrial fibrillation Code(s): I48.91 - Unspecified atrial fibrillation Status: Acute Assessment and Plan: Patient presents with feeling of jitteriness in the chest but no overt chest pain. He was found to have bradycardia so consider related to sick sinus. EKG showing AFib with slow ventriclur response Cardiology recommends holding atenolol Monitor on tele. (2) Exertional dyspnea: Code(s): R06.09 - Other forms of dyspnea Status: Acute Assessment and Plan: Noted but chronic and without change. [place] related to deconditioning and/or related to low EF. CXR clear but BNP elevated to 6960 Lasix x1 given Follow (3) LV dysfunction: Code(s): I51.9 - Heart disease, unspecified Status: Acute Assessment and Plan: His last echo in 2023 demonstrated an EF of 45-50% with combined systolic/diastolic dysfunction, with severe LAE and AVRIL. Also with possible ASD vs PFO with left to right shunt and moderate MR and moderate pulmonary hypertension. Lasix IV x1. Echo ordered (4) CAD (coronary artery disease): Code(s): I25.10 - Atherosclerotic heart disease of [place] coronary artery without angina pectoris Status: Acute Assessment and Plan: History of CAD. Patient with CA in 2007 requiring stent to RCA. Not on aspirin since on xarelto. Continue atorvastatin. Hold atenolol (5) HTN (hypertension): Qualifiers: Hypertension type: essential hypertension Qualified Code(s): I10 - Essential (primary) hypertension Code(s): I10 - Essential (primary) hypertension Status: Acute Assessment and Plan: BP stable. Resume Entresto. (6) HLD (hyperlipidemia): Qualifiers: Hyperlipidemia type: other hyperlipidemia Qualified Code(s): E78.49 - Other hyperlipidemia Code(s): E78.5 - Hyperlipidemia, unspecified Status: Acute Assessment and Plan: AST/ALT normal. TB and AP elevated but more of a chronic finding. Check indirect bili. Consider Rt UQ US.
[2025-03-01 15:11] LABS: Magnesium 2.0 mg/dL (1.6-2.3)
[2025-03-01] MEDS: FUROSEMIDE INJ 40 MG/4 ML VIAL 20 MG IV PUSH (15:13)
[2025-03-01 15:36] LABS: Troponin I < 0.012 ng/mL (0.000-0.034)
[2025-03-01] MEDS: SACUBITRIL/VALSARTAN 24-26 MG TABLET 1 TAB PO (16:35)
[2025-03-01 19:58] LABS: Thyroid Stimulating Hormone Reflex 2.740 uIU/mL (0.465-4.68)
[2025-03-02] VITALS (12 sets, daily range): BP systolic 118–130; BP diastolic 54–66; PULSE 54–90; RESP 12–16; TEMP 36.3–37.1; O2SAT 96–99
[2025-03-02 04:14] LABS: Alanine Aminotransferase 22 U/L (6-50); Albumin Level 3.5 g/dL (3.5-5.1); Alkaline Phosphatase 172 U/L (38-126); Anion Gap 5 mmol/L (4-12); Aspartate Amino Transferase 27 U/L (17-59); Bilirubin,Total 2.1 mg/dL (0.2-1.3); Blood Urea Nitrogen 13 mg/dL (9-20); Calcium 8.5 mg/dL (8.4-10.2); Carbon Dioxide 27 mmol/L (22-30); Chloride 103 mmol/L (98-107); Estimated CRCL calculation 72 ml/min; Estimated Glomerular Filt Rate > 60; Glucose 79 mg/dL (65-110); Potassium 3.9 mmol/L (3.4-5.0); Sodium 135 mmol/L (137-145); Total Protein 6.3 g/dL (6.3-8.2)
[2025-03-02] MEDS: SACUBITRIL/VALSARTAN 24-26 MG TABLET 1 TAB PO (08:50)
[2025-03-02] MEDS: RIVAROXABAN 20 MG TABLET PO (08:51)
[2025-03-02] MEDS: ATORVASTATIN 40 MG TABLET PO (08:51)
--- NOTE | 2025-03-02 09:37 | PM.PNCARD ---
Progress Note: A&P Assessment and Plan (1) Atrial fibrillation: Qualifiers: Atrial fibrillation type: unspecified Qualified Code(s): I48.91 - Unspecified atrial fibrillation Code(s): I48.91 - Unspecified atrial fibrillation Status: Acute (2) Exertional dyspnea: Code(s): R06.09 - Other forms of dyspnea Status: Acute (3) HTN (hypertension): Qualifiers: Hypertension type: essential hypertension Qualified Code(s): I10 - Essential (primary) hypertension Code(s): I10 - Essential (primary) hypertension Status: Acute (4) HLD (hyperlipidemia): Qualifiers: Hyperlipidemia type: other hyperlipidemia Qualified Code(s): E78.49 - Other hyperlipidemia Code(s): E78.5 - Hyperlipidemia, unspecified Status: Acute Plan Shortness of breath. Patient reports noting LUJAN for the last 1-2 days, associated with skipped beats. He was noted to have an elevated pBNP on admission of 6960. On exam however, patient does not appear acutely volume overloaded. His CXR was clear without any acute cardiopulmonary process. His troponin have been in normal range x 2. EKG demonstrates atrial fibrillation with no acute ST/T wave changes. I will order echo to look for any LV dysfunction or wall motion abnormality. His last echo in 2023 demonstrated an EF of 45-50% with combined systolic/diastolic dysfunction, with severe LAE and AVRIL. Moderate MR and moderate pulmonary hypertension. Will give a one time dose of IV lasix and monitor given reports of LUJAN Acute on chronic combined systolic and diastolic HF. EF of 45%. Continue entresto 24-26mg BID. Hold his BB in the setting of bradycardia Persistent atrial fibrillation. Heart rate improved with holding beta-betsy. TSH 2.740, Mag 2.0. May benefit from OP tele monitor to r/o any arrhythmia/bradycardia/pauses. Will continue Xarelto 20 mg daily for AC Hypertension. Blood pressure with reasonable control. Would continue entresto 24-26 mg BID as noted above. History of CAD. with history of LA in 2007 and stent to RCA. NO aspirin as on xarelto. Continue atorvastatin 40 mg daily Possible ASD vs PFO. As left to right shunt noted on last echo. Continue on xarelto 20 mg daily Hyperlipidemia. Continue atorvastatin 40 mg daily Euvolemic. Does not need further diuresis. Repeat echo shows EF 45% with RV dysfunction and moderate pulmonary hypertension may benefit from stress test on OP basis He has follow-up in our office in April Cardiology will sign off. Please call with any questions. Subjective Date/time seen: 03/02/25 09:37 Interval history: Cardiology follow-up visit Date of service 03/02/2025: Feeling well this morning. No shortness of breath. Review of Systems Review of Systems: All systems reviewed & are unremarkable except as noted in HPI and below Exam Const: General: comfortable and no acute distress Neck: Neck: supple and No no JVD Carotids: no bruits Resp: Effort & Inspection: normal respiratory effort Auscultation: clear to auscultation bilaterally Cardio: Rate: regular rate Rhythm: abnormal rhythm Heart sounds: no murmurs and no rubs Skin: General skin exam: normal color and no erythema Neuro: Speech: normal speech Extrem: General: normal to inspection and no edema Psych: Mental Status: mental status grossly normal Objective Data Vital Signs Vital Signs: Vital Signs - 24 hr 03/01/25 10:06 03/01/25 10:26 03/01/25 10:30 Temperature Pulse Rate 63 61 62 Respiratory Rate 12 16 9 L Blood Pressure Pulse Oximetry 96 96 96 Oxygen Delivery 03/01/25 11:47 03/01/25 12:00 03/01/25 12:13 Temperature 36.6 C Pulse Rate 57 L 62 76 Respiratory Rate 16 18 Blood Pressure 139/79 138/72 Pulse Oximetry 99 91 Oxygen Delivery 03/01/25 14:00 03/01/25 16:00 03/01/25 16:00 Temperature 36.9 C Pulse Rate 53 L 48 L 50 L Respiratory Rate 18 Blood Pressure 100/67 Pulse Oximetry 98 Oxygen Delivery 03/01/25 18:00 03/01/25 19:45 03/01/25 20:00 Temperature 36.6 C Pulse Rate 68 65 56 L Respiratory Rate 16 16 Blood Pressure 115/59 L Pulse Oximetry 95 95 Oxygen Delivery Room Air 03/01/25 20:00 03/01/25 21:27 03/02/25 00:00 Temperature Pulse Rate 56 L 54 L 59 L Respiratory Rate 12 Blood Pressure Pulse Oximetry 96 Oxygen Delivery Room Air 03/02/25 00:00 03/02/25 00:04 03/02/25 02:00 Temperature 36.7 C Pulse Rate 59 L 54 L 62 Respiratory Rate 12 Blood Pressure 122/54 L Pulse Oximetry 96 Oxygen Delivery 03/02/25 03:29 03/02/25 04:00 03/02/25 04:00 Temperature 37.1 C Pulse Rate 90 62 62 Respiratory Rate 15 15 Blood Pressure 118/66 Pulse Oximetry 97 97 Oxygen Delivery Room Air 03/02/25 06:00 03/02/25 07:28 03/02/25 08:00 Temperature 36.3 C L Pulse Rate 60 62 65 Respiratory Rate 15 16 Blood Pressure 130/55 L Pulse Oximetry 97 99 Oxygen Delivery Room Air Intake/Output Intake/Output: Intake & Output 02/27/25 02/28/25 03/01/25 03/02/25 23:59 23:59 23:59 23:59 Intake Total 1080 790 Output Total 950 Balance 1080 -160 Meds/Results Medications: Active Medications Generic Name Dose Route Start Last Admin Trade Name Freq PRN Reason Stop Dose Admin Atorvastatin Calcium 40 mg 03/02/25 09:00 03/02/25 08:51 Atorvastatin 40 Mg Tablet PO 40 mg DAILY SELVIN Administration Perflutren Lipid Microsphere 0 ml 03/01/25 13:46 Perflutren Lipid Microspheres 1.5 Ml Vial Diluted To 10 Ml Total Volume IV PUSH 03/04/25 13:46 ONCE PRN adequate visualization Protocol Rivaroxaban 20 mg 03/02/25 09:00 03/02/25 08:51 Rivaroxaban 20 Mg Tablet PO 20 mg DAILY SELVIN Administration Sacubitril/Valsartan 1 tab 03/01/25 17:00 03/02/25 08:50 Sacubitril/Valsartan 24-26 Mg Tablet PO 1 tab BID SELVIN Administration Radiology Results: ITS Impressions Chest X-Ray 03/01/25 09:40 IMPRESSION: 1. No acute cardiopulmonary findings. Labs Labs: Laboratory Results - last 24 hr 03/01/25 03/01/25 03/01/25 09:16 10:05 12:19 Sodium 137 Potassium 4.1 Chloride 105 Carbon Dioxide 22 Anion Gap 10 BUN 12 Creatinine 0.81 Estim Creat Clear Calc 78 Estimated GFR > 60 Glucose 81 Calcium 9.0 Magnesium 2.0 Total Bilirubin 2.8 H Indirect Bilirubin AST 33 ALT 29 Alkaline Phosphatase 196 H Troponin I 0.014 NT-Pro-B Natriuret Pep 6960 H Total Protein 7.4 Albumin 4.1 TSH (Reflex) 2.740 Urine Color Yellow Urine Appearance Clear Urine pH 7.0 Ur Specific [place] 1.014 Urine Protein 1+ H Urine Glucose (UA) Negative Urine Ketones Negative Ur Blood (Man) Negative Urine Nitrate Negative Urine Bilirubin Negative Urine Urobilinogen 2.0 H Leukocyte Esterase Rfl Negative Urine RBC 0-2 Urine WBC 0-5 Ur Squamous Epith Cells None seen Urine Bacteria None seen Urine Casts 0-2 03/01/25 03/01/25 03/02/25 12:22 15:01 03:26 Sodium 135 L Potassium 3.9 Chloride 103 Carbon Dioxide 27 Anion Gap 5 BUN 13 Creatinine 0.85 Estim Creat Clear Calc 72 Estimated GFR > 60 Glucose 79 Calcium 8.5 Magnesium Total Bilirubin 2.1 H Indirect Bilirubin 1.5 H AST 27 ALT 22 Alkaline Phosphatase 172 H Troponin I < 0.012 < 0.012 NT-Pro-B Natriuret Pep Total Protein 6.3 Albumin 3.5 TSH (Reflex) Urine Color Urine Appearance Urine pH Ur Specific [place] Urine Protein Urine Glucose (UA) Urine Ketones Ur Blood (Man) Urine Nitrate Urine Bilirubin Urine Urobilinogen Leukocyte Esterase Rfl Urine RBC Urine WBC Ur Squamous Epith Cells Urine Bacteria Urine Casts
--- NOTE | 2025-03-02 13:58 | PM.DS ---
DS: Admitting Diagnosis Discharge Date 03/02/25 Admitting Diagnosis Jitteriness DS: Discharge Diagnosis Discharge Diagnosis (1) Atrial fibrillation: Qualifiers: Atrial fibrillation type: unspecified Qualified Code(s): I48.91 - Unspecified atrial fibrillation Code(s): I48.91 - Unspecified atrial fibrillation Status: Acute (2) Exertional dyspnea: Code(s): R06.09 - Other forms of dyspnea Status: Acute (3) LV dysfunction: Code(s): I51.9 - Heart disease, unspecified Status: Acute (4) CAD (coronary artery disease): Code(s): I25.10 - Atherosclerotic heart disease of [place] coronary artery without angina pectoris Status: Acute (5) HTN (hypertension): Qualifiers: Hypertension type: essential hypertension Qualified Code(s): I10 - Essential (primary) hypertension Code(s): I10 - Essential (primary) hypertension Status: Acute (6) HLD (hyperlipidemia): Qualifiers: Hyperlipidemia type: other hyperlipidemia Qualified Code(s): E78.49 - Other hyperlipidemia Code(s): E78.5 - Hyperlipidemia, unspecified Status: Acute DS: Summary Hospital Course Reason for hospitalization: 74yo male with HTN, HLD, CAD and AFib who presents with jitteriness. Please see H&P for details. Hospital Course: In the emergency room, he was hemodynamically stable. His pulse was 65. He was not febrile or hypoxic. CBC was unremarkable. CMP was unremarkable except for a total bilirubin 2.8 and an alk phos 196. This has been noted before. INR was 2.8. Troponin negative x3. BNP was 6960. UA showed 1+ protein. TSH normal. Chest x-ray was clear. EKG showing atrial fibrillation with heart rate of 55 and incomplete right bundle branch block. Borderline ST-T wave changes in the anterior leads. He was given aspirin. Cardiology was consulted. Patient received Lasix x1. Atenolol held. Hyperbilirubin mostly indirect and probably [place]. Echo showing EF 45%, mild LV wall thickness, abnormal diastolic dysfunction, moderately enlarged RV with reduced RV systolic function, AVRIL, mild-moderate MR/TR and moderate pulmonary HTN. EF unchanged from prior. No hx of BRIA. Also with possible ASD vs PFO with left to right shunt seen on prior Echo but not seen this time. Patient remained asymptomatic. No significant findings on tele. He overall did well and was able to be discharged on 03/02/25. Discharge instructions discussed including medication side effects and all questions answered. Status at Discharge Cognitive/behavioral status at discharge: stable Time Spent with Patient Time attestation: Total time spent providing and/or coordinating discharge services: 35 minutes Time spent: Greater than 30 minutes Exam Narrative: AF 98.2 127/65 73 16 98% ra Gen - NARD Chest - CTA bilaterally, nml RR CV - irregularly irregular. Tele showing AFib with normal rate. Abd - soft. Nontender. Nondistended. Ext - no pedal edema Neuro - nonfolca Psych - normal mood and affect. Skin - warm and dry. DS: Data Data Completed and Pending Labs on day of discharge: Labs from last 24 hours 03/02/25 03/01/25 03/01/25 03:26 15:01 12:19 Sodium 135 L Potassium 3.9 Chloride 103 Carbon Dioxide 27 Anion Gap 5 BUN 13 Creatinine 0.85 Estim Creat Clear Calc 72 Estimated GFR > 60 Glucose 79 Calcium 8.5 Magnesium Total Bilirubin 2.1 H Indirect Bilirubin 1.5 H AST 27 ALT 22 Alkaline Phosphatase 172 H Troponin I < 0.012 Total Protein 6.3 Albumin 3.5 TSH (Reflex) 2.740 03/01/25 09:16 Sodium Potassium Chloride Carbon Dioxide Anion Gap BUN Creatinine Estim Creat Clear Calc Estimated GFR Glucose Calcium Magnesium 2.0 Total Bilirubin Indirect Bilirubin AST ALT Alkaline Phosphatase Troponin I Total Protein Albumin TSH (Reflex) Discharge Plan Discharge Attending physician on discharge: Harris Christianson Consulting providers: Tung Sal Discharging Clinician: Harris Christianson Anticipated Discharge Date/Time: 03/02/25 14:08 Patient Disposition: Home Activity: no straining, as tolerated and other - see discharge instructions Diet: heart healthy Discharge Instructions: Light activity until seen by Cardiology. Take precautions to avoid falls. Rise slowly from a lying or sitting position. Pause before standing or walking. Check daily morning weights after voiding. Call your doctor if you gain more than 3 lb in 2 days or 5 lb in 1 week. Contact your doctor or call 911 and come to the Emergency Room if you have lightheadedness with standing or other worrisome symptoms. Avoid NSAIDs (ibuprofen, naproxen, Aleve). Tylenol is safe to take. Follow-up with your primary care provider in 1-2 weeks. Please call for appointment. Follow-up with Cardiology at next scheduled appointment. Please ask your doctors to arrange for an outpatient sleep study. Thank you for using [facility] for your health care needs. Patient Instructions: Antibiotic Form Patient Language: Macedonian Stand Alone Forms: General Discharge Information Follow-up/Referrals: Tung Sal MD [Physician, Cardiology] - Call for Appointment Rafa Banks APRN [Primary Care Provider, Internal Medicine] - Call for Appointment Discharge Medications: Continued atorvastatin 40 mg tablet 40 mg PO DAILY Entresto 24-26 mg tablet 1 tablet PO BID Xarelto 20 mg tablet 20 mg PO HS Discontinued atenolol 50 mg tablet 50 mg PO DAILY Date of admission: 03/01/25 10:57 Primary Care Provider: Rafa Banks Admitting Provider: Harris Christianson Attending physician on admission: Harris Christianson Condition: Stable Hospitalist MIPS Heart Failure (Exclusion) Patient has history of Heart Transplant or Left Ventricular Assistive Device?: No IF YES, STOP HERE Heart Failure (Qualifier) Patient has current or prior documentation of LVEF less than or equal to 40%, or mod/servere depressed LVSF?: No IF NO, STOP HERE
== END 2025-03-02 14:47 | disposition home or self-care (01) ==
LOC: ANHED 11:49 → ANHIMU 11:57
PROVIDERS: Emergency Medicine; Nurse Practitioner Family; Admitting Provider Internal Medicine; Emergency Provider Physician Assistant; PCP Nurse Practitioner; Visit Provider Internal Medicine
DX: I48.91 Unspecified atrial fibrillation (principal); I11.0 Hypertensive heart disease with heart failure; I50.43 Acute on chronic combined systolic (congestive) and diastolic (congestive) heart failure; I25.10 Atherosclerotic heart disease of native coronary artery without angina pectoris; R06.09 Other forms of dyspnea; I27.20 Pulmonary hypertension, unspecified; E78.49 Other hyperlipidemia; R09.89 Other specified symptoms and signs involving the circulatory and respiratory systems; R00.1 Bradycardia, unspecified; I45.10 Unspecified right bundle-branch block; I25.2 Old myocardial infarction; Z79.01 Long term (current) use of anticoagulants; Z95.5 Presence of coronary angioplasty implant and graft; Z87.820 Personal history of traumatic brain injury; Z90.01 Acquired absence of eye; Z86.0101 Personal history of adenomatous and serrated colon polyps; Z87.891 Personal history of nicotine dependence; Z80.42 Family history of malignant neoplasm of prostate; Z80.9 Family history of malignant neoplasm, unspecified; Z82.49 Family history of ischemic heart disease and other diseases of the circulatory system; Z82.3 Family history of stroke
CPT/HCPCS: 36415; 71046; 80053; 81001; 83735; 83880; 84443; 84484; 85025; 85610; 85730; 93005; 93306; 99285; A9270; G0378; J1938